=== PATIENT | female | born 1970 | race Caucasian/White ===

== ENCOUNTER → 2020-08-02 09:56 | Outpatient (BNVA) | payer OTHER, SELFPAY | PROVIDERS: PCP Physician Assistant; Visit Provider Obstetrics & Gynecology ==

== ENCOUNTER 2020-08-12 07:33 | Outpatient (REF) | payer OTHER, SELFPAY ==
[2020-08-12 11:02] LABS: Hematocrit 40.6 % (37-47); Hemoglobin 13.4 g/dl (12.0-16.0); Mean Corpuscular Hemoglobin 29.8 pg (27.0-33.0); Mean Corpuscular Volume 90.4 fL (80-98); Mean Platelet Volume 10.5 fL (9.4-12.3); Platelet Count 301 X10*3/uL (160-400); Red Blood Count 4.49 X10*6/uL (4.20-5.50); Red Cell Distribution Width 12.3 % (11.0-16.0); White Blood Count 5.1 X10*3/uL (4.8-10.8)
[2020-08-12 11:16] LABS: Estimated Average Glucose 100 mg/dL; Hemoglobin A1c % 5.1 %
[2020-08-12 11:45] LABS: Alanine Aminotransferase 19 U/L (0-31); Albumin Level 4.2 g/dL (3.5-5.0); Alkaline Phosphatase 53 U/L (39-117); Anion Gap 11 (12-20); Aspartate Amino Transferase 30 U/L (5-31); Bilirubin Total 0.9 mg/dL (0.0-1.0); Blood Urea Nitrogen 17 mg/dL (9-16); Calcium 9.2 mg/dL (8.4-10.2); Carbon Dioxide 27 mmol/L (22-29); Chloride 105 mmol/L (96-108); Cholesterol 192 mg/dL; Estimated Glomerular Filt Rate > 60; Glucose Fasting 82 mg/dL (60-99); HDL Cholesterol 65 mg/dL; LDL Cholesterol Calculated 119 mg/dl; Potassium 4.2 mmol/L (3.3-5.1); Sodium 139 mmol/L (135-145); Total Protein 6.8 g/dL (6.5-8.0); Triglycerides 44 mg/dL
[2020-08-12 12:09] LABS: TSH reflex Free T4 1.26 uIU/mL (0.32-4.0)
== END 2020-08-12 07:34 | disposition home or self-care (01) ==
LOC: HO.WFDLDS 07:33
PROVIDERS: Visit Provider Physician Assistant
DX: Z13.29 Encounter for screening for other suspected endocrine disorder (principal); Z13.220 Encounter for screening for lipoid disorders; Z13.1 Encounter for screening for diabetes mellitus; I10 Essential (primary) hypertension
CPT/HCPCS: 36415; 80053; 80061; 83036; 84443; 85027

== ENCOUNTER 2021-09-07 07:17 | Outpatient (REF) | payer OTHER, SELFPAY ==
[2021-09-07 11:33] LABS: Hematocrit 38.8 % (37.0-47.0); Hemoglobin 12.2 g/dl (12.0-16.0); Mean Corpuscular HGB Conc 31.4 g/dl (31.0-35.0); Mean Corpuscular Hemoglobin 27.5 pg (27.0-33.0); Mean Corpuscular Volume 87.6 fL (80.0-98.0); Mean Platelet Volume 10.1 fL (9.4-12.3); Platelet Count 314 X10*3/uL (160-400); Red Blood Count 4.43 X10*6/uL (4.20-5.50); Red Cell Distribution Width 12.9 % (11.0-16.0)
[2021-09-07 11:55] LABS: Alanine Aminotransferase 20 U/L (0-31); Albumin Level 4.2 g/dL (3.5-5.0); Alkaline Phosphatase 60 U/L (39-117); Anion Gap 9 (12-20); Aspartate Amino Transferase 27 U/L (5-31); Bilirubin Total 0.7 mg/dL (0.0-1.0); Blood Urea Nitrogen 19 mg/dL (9-16); Calcium 9.5 mg/dL (8.4-10.2); Carbon Dioxide 29 mmol/L (22-29); Chloride 106 mmol/L (96-108); Cholesterol 223 mg/dL; Estimated Glomerular Filt Rate 53; Glucose Fasting 89 mg/dL (60-99); HDL Cholesterol 67 mg/dL; LDL Cholesterol Calculated 144 mg/dl; Potassium 4.2 mmol/L (3.3-5.1); Sodium 140 mmol/L (135-145); Total Protein 7.1 g/dL (6.5-8.0); Triglycerides 62 mg/dL
== END 2021-09-07 07:18 | disposition home or self-care (01) ==
LOC: HO.WFDLDS 07:17
PROVIDERS: Visit Provider Physician Assistant
DX: Z13.220 Encounter for screening for lipoid disorders (principal); Z13.29 Encounter for screening for other suspected endocrine disorder
CPT/HCPCS: 36415; 80053; 80061; 84443; 85027

== ENCOUNTER 2022-04-11 08:51 | Day surgery (SDC) | payer OTHER, SELFPAY ==
[2022-04-04 13:55] VITALS: BMI 24.3
[2022-04-11 09:12] VITALS: BP 145/86; PULSE 79; RESP 18; TEMP 37; O2SAT 99
--- NOTE | 2022-04-11 09:48 | P.CONAN_ITS ---
[facility] Active Problems Active Problems: All Active Problems (Updated 04/04/22 @ 13:54 by Yohana Holt RN) Vijaya-menopausal (Acute) Screening for diabetes mellitus (DM) (Acute) Screening for hypercholesterolemia (Acute) Screening for hypothyroidism (Acute) Annual physical exam (Acute) Colon cancer screening (Acute) Suprapubic cramping (Acute) Pre-op examination (Acute) Past Medical History Medical History Menopausal symptom Family History Family History Father Bladder cancer Mother HTN (hypertension) Rheumatic arteritis Sarcoidosis Surgical History Surgical History History of loop electrical excision procedure (LEEP) Hx of LASIK History of Problems with Anesthesia: No Social History Social History Housing: House Alcohol intake: current Alcohol intake frequency: a few times a month Patient Tobacco Use Status: Never used Tobacco Use of substances other than those prescribed or required for medical reasons: No Have you been hit, kicked, punched, or otherwise hurt by someone within the past year? 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[place] Gender identity: Female Cognitive needs: No Hearing needs: No Vision needs: No Meds Allergies Allergy/AdvReac Type Severity Reaction Status Date / Time fluoxetine AdvReac Mild cough Verified 04/04/22 13:55 Home Medications Medication Instructions Recorded Confirmed Last Taken Type estradiol 0.0375 mg/24 hr 1 patch transdermal 2XW 11/10/21 04/04/22 Unknown History semiweekly transdermal patch progesterone micronized 200 mg 200 mg PO DAILY 11/10/21 04/04/22 Unknown History capsule Exam Exam Date and Time: April 11, 2022 0948 Height,Weight and Vital Signs: Height 5 ft 6 in Weight 68.492 kg Last Vital Signs Temp 98.6 F 04/11/22 09:12 Pulse 79 04/11/22 09:12 Resp 18 02/21/23 09:12 BP 145/86 H 04/11/22 09:12 Pulse Ox 99 04/11/22 09:12 O2 Del Method 04/11/22 09:12 Assessment and Plan Final Anesthetic Review History of Problems with Anesthesia: No NPO: Yes ASA Class: I Final Preanesthetic Review: Meds/Allgs Chart Reviewed, Consent Obtained/Reviewed and Anes Risks/Benef Reviewed Patient Risk: Low Procedure Risk: Low Anesthetic Plan Anesthetic Plan: MAC: Disposition: Standard PACU
[2022-04-11 10:04] VITALS: BMI 23.6
--- NOTE | 2022-04-11 10:04 | P.HPSUR_ITS ---
Pre-Procedural Eval Section A Date of Service: 04/11/22 Section B Chief Complaint: screening Relevant Family History (Specify if Yes): No Relevant Social History: None Present Medications: see Short Stay Collaborative assessment Medical History: No relevant PMH History of Previous Operations: Relevant previous surgery/procedure and date(s) (LEEP LASIK surgery) Allergies: Allergies Allergy/AdvReac Type Severity Reaction Status Date / Time fluoxetine AdvReac Mild cough Verified 04/04/22 13:55 Review of Systems Sugical H&P ROS: Negative: Constitution, Cardiovascular, Respiratory, Neurological, Psychiatric, Hem-Onc, Allergic/Immunologic, Gastrointestinal, G enitourinary, Musculoskeletal, Integumentary, Endocrine and Eyes/Ears/Nose/Throat Exam Surgical H&P Exam: Normal: HEENT, Normal: Heart, Normal: Lungs, Normal: Extremities, Normal: Abdomen, Normal: Skin and Normal: Neurological Plan Diagnosis/Plan: Unchanged I have reviewed the history and physical and performed a pertinent physical examination on my patient. No changes have occurred unless specified. Time Spent With Patient Time: Total time managing care of this patient today ____ minutes.
[2022-04-11] MEDS: Lactated Ringers 1,000 ML 50 ML IVCONT (10:07)
--- NOTE | 2022-04-11 10:09 | W.PM.OPN ---
Operative Note Operative Note Date of Service: 04/11/22 Narrative: Operative Information Procedure Description: Colonoscopy Indication: screening Anesthesia: MAC COLONOSCOPY Instrument: Olympus variable stiffness pediatric scope 190L Colonoscopy Monitoring: Vital signs and clinical assessment, continuous EKG monitoring, Pulse oximetry, Carbon Dioxide monitoring and blood pressure monitoring were done throughout the procedure. Colon withdrawal time was 8 minutes. Procedure: The patient was placed in the left lateral decubitis position and pre-procedure medications were administered. After a digital rectal examination of the ano-rectum, the video colonoscope was inserted into the rectum and advanced through the colon to the cecum/TI. The colonoscope was slowly withdrawn in a retrograde panoramic fashion and the colon mucosa was carefully examined including a retroflexed view of the rectum. Findings and interventions are described below. Procedure Difficulty: difficult, pressure applied Findings: Terminal Ileum-normal Cecum:normal Ascending Colon: normal Transverse Colon -normal Descending Colon:normal Sigmoid Colon: normal Rectum: Retroflexion with medium sized internal hemorrhoids, grade I Anorectum - normal Colon preparation: [place] Bowel Preparation Scale Right colon; 3 Transverse colon: 3 Left colon; 3 (0 = Unprepared colon segment with mucosa not seen due to solid stool that cannot be cleared. 1 = Portion of mucosa of the colon segment seen, but other areas of the colon segment not well seen due to staining, residual stool and/or opaque liquid. 2 = Minor amount of residual staining, small fragments of stool and/or opaque liquid, but mucosa of colon segment seen well. 3 = Entire mucosa of colon segment seen well with no residual staining, small fragments of stool or opaque liquid) Impression and Post Procedure Diagnosis: internal hemorrhoids Plan: High fiber diet leaflet Avoid straining at stool, epsom salts and sitz bath, anusol supps or cream Repeat Colonoscopy in 10 years or earlier if clinically indicated Above findings were reviewed with the patient and relevant handouts were provided if indicated.
[2022-04-11 10:45] VITALS: BP 100/61; PULSE 69; RESP 20; TEMP 36.7; O2SAT 98
[2022-04-11 11:00] VITALS: BP 121/72; PULSE 58; RESP 20; TEMP 36.7; O2SAT 98
== END 2022-04-11 11:56 | disposition home or self-care (01) ==
PROVIDERS: PCP Physician Assistant; Visit Provider Internal Medicine Gastroenterology
PROC: 0DJD8ZZ Inspection of Lower Intestinal Tract, Via Natural or Artificial Opening Endoscopic (ICD-10-PCS; CPT 45378; principal; 2022-04-11 10:10)
DX: Z12.11 Encounter for screening for malignant neoplasm of colon (principal); K64.0 First degree hemorrhoids; N95.1 Menopausal and female climacteric states; Z79.899 Other long term (current) drug therapy; Z88.8 Allergy status to other drugs, medicaments and biological substances
CPT/HCPCS: 45378

== ENCOUNTER 2022-09-05 07:23 | Outpatient (REF) | payer OTHER, SELFPAY ==
[2022-09-05 11:52] LABS: Hematocrit 39.2 % (37.0-47.0); Hemoglobin 12.1 g/dl (12.0-16.0); Mean Corpuscular HGB Conc 30.9 g/dl (31.0-35.0); Mean Corpuscular Hemoglobin 25.8 pg (27.0-33.0); Mean Corpuscular Volume 83.6 fL (80.0-98.0); Mean Platelet Volume 10.7 fL (9.4-12.3); Platelet Count 339 X10*3/uL (160-400); Red Blood Count 4.69 X10*6/uL (4.20-5.50); Red Cell Distribution Width 14.4 % (11.0-16.0); White Blood Count 5.5 X10*3/uL (4.8-10.8)
[2022-09-05 12:13] LABS: Alanine Aminotransferase 12 U/L (0-31); Albumin Level 3.8 g/dL (3.5-5.0); Alkaline Phosphatase 42 U/L (39-117); Anion Gap 11 (12-20); Aspartate Amino Transferase 21 U/L (5-31); Bilirubin Total 0.6 mg/dL (0.0-1.0); Blood Urea Nitrogen 15 mg/dL (9-16); Calcium 8.4 mg/dL (8.4-10.2); Carbon Dioxide 25 mmol/L (22-29); Chloride 109 mmol/L (96-108); Estimated Glomerular Filt Rate > 60; Glucose Fasting 83 mg/dL (60-99); Potassium 4.5 mmol/L (3.3-5.1); Sodium 140 mmol/L (135-145); Total Protein 6.9 g/dL (6.5-8.0)
== END 2022-09-05 07:24 | disposition home or self-care (01) ==
LOC: HO.WFDLDS 07:23
PROVIDERS: Visit Provider Physician Assistant
DX: Z13.1 Encounter for screening for diabetes mellitus (principal); R06.02 Shortness of breath
CPT/HCPCS: 36415; 80053; 85027

== ENCOUNTER 2022-09-07 15:48 | Outpatient (AMB) | payer OTHER, SELFPAY ==
--- NOTE | 2022-09-07 15:56 | A.OFFPC_ITS ---
Vital Signs 09/07/22 15:57 Height 5 ft 6 in Weight 147 lb 2 oz BMI 23.7 BP 122/84 Blood Pressure Location Lt brachial Position Sitting Pulse 80 Pulse Source Pulse Oximeter Pulse Oximetry (%) 98 Oxygen Delivery Method Room Air Intake Visit Reasons: Annual PE Allergies fluoxetine Adverse Reaction (Mild, Verified 09/07/22 16:16) cough Medication List - Last Reconciled 09/07/22 by Michael Vicente PA-C norethindrone-e.estradiol-iron 1 mg-10 mcg (24)/10 mcg (2) (Lo Loestrin Fe) 1 tab PO DAILY Tobacco use date assessed: 09/07/22 HPI Annual PE HPI Details ?patient is a 51-year-old female here today for annual physical. ? Patient has a past medical history significant for? Vijaya menopausal symptoms thus takes fluoxitine. .. Concerns--> reports over the last 2 months having 2 episodes tachycardia during strenuous exercise. She reports having a heart rate of 210 during a 10K run. She reports having shortness of breath during this time and is concerned about this. Otherwise denies any chest discomfort, shortness of breath or dizziness at rest. .. 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 ? Vaccines:? up-to-date with Tdap,? up-to-date with COVID vaccine, up-to-date flu vaccine . Colorectal cancer screening:? 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 1. Little interest or pleasure in doing things: not at all 2. Feeling down, depressed, or hopeless: not at all 3. Trouble falling or staying asleep, or sleeping too much: not at all 4. Feeling tired or having little energy: not at all 5. Poor appetite or overeating: not at all 6. Feeling bad about yourself - or that you are a failure or have let yourself or your family down: not at all 7. Trouble concentrating on things, such as reading the newspaper or watching television: not at all 8. Moving or speaking so slowly that other people could have noticed. Or the opposite - being so fidgety or restless that you have been moving around a lot more than usual: not at all 9. Thoughts that you would be better off or of hurting yourself in some way: not at all Total score: 0 Depression Screening Interpretation: Negative 09175 - PHQ-9 Billing: Yes Source: Developed by Drs. Arvind Panda, Moni Davidson, Vitaly Copeland and colleagues, with an educational marty from [employer]. Thrive Questionnaire Date Thrive assessed: 09/07/22 I am a: Patient What is your living situation today?: I have a steady place to live Within the past 12 months, did the food you bought not last and you didn't have the money to get more?: Never true Within the past 12 months, did you worry whether your food would run out before you got money to buy more?: Never true Do you have trouble paying for medicines?: No Do you have trouble getting transportation to medical appointments?: No Do you have trouble paying your heating and electricity bill?: No Do you have trouble taking care of your child, family member or friend?: No Do you have trouble with day-to-day activities such as bathing, preparing meals, shopping, managing finances, etc.?: No Are you currently unemployed and looking for a job?: No Are you interested in more education?: No AUDIT C Alcohol Use Questionnaire (AUDIT-C) 1. How often do you have a drink containing alcohol?: 2-4 times a month 2. How many drinks containing alcohol do you have on a typical day when you are drinking?: 1 or 2 3. How often do you have six or more drinks on one occasion?: Never Total Score: 2 NADEEN-7 AMB Questionnaire NADEEN-7 Date NADEEN - 7 assessed: 09/07/22 Feeling nervous, anxious, or on edge: 0 = Not at all Not being able to stop or control worryin = Not at all Worrying too much about different things: 0 = Not at all Trouble relaxin = Not at all Being so restless that it is hard to sit still: 0 = Not at all Becoming easily annoyed or irritable: 0 = Not at all Feeling afraid as if something awful might happen: 0 = Not at all Total NADEEN-7 score (0-4 normal; 5-9 mild; 10-14 moderate; 15-21 severe): 0 Source: Developed by Drs. Arvind Panda, Moni Davidson, Vitaly Copeland and colleagues, with an educational marty from [employer]. NADEEN-7 Assessment Billing NADEEN-7 Assessment Tool: NADEEN-7 Assessment 15355 Review of Systems Const Denies body aches, Denies chills, Denies excessive sweating, Denies fatigue, Denies fever(s) and Denies headache(s) Eyes Denies blurry vision ENT Denies dysphagia, Denies vertigo, Denies dizziness, Denies headache(s), Denies hearing loss and Denies tinnitus Card Denies chest pain, Denies chest pain with activity, Denies syncope, Denies irregular heart rhythm and Denies dyspnea Resp Denies chest congestion, Denies cough, Denies hemoptysis, Denies dyspnea and Denies wheezing GI Denies abdominal pain, Denies melena, Denies hematochezia, Denies coffee ground emesis, Denies dysphagia, Denies diarrhea, Denies nausea and Denies vomiting Denies urinary frequency, Denies dysuria, Denies urinary hesitancy and Denies urinary urgency Musc Denies arthralgias, Denies limited range of motion, Denies muscle cramps and Denies muscle weakness Skin/Breast Denies rash and Denies skin ulcer Neuro Denies Abnormal speech present, Denies confusion, Denies vertigo, Denies dizziness, Denies syncope, Denies headache(s), Denies memory loss and Denies seizure-like activity Psych Denies anxiety, Denies confusion, Denies depression, Denies memory loss, Denies panic attacks and Denies paranoia Endo Denies excessive sweating, Denies fatigue, Denies flushing, Denies polydipsia and Denies polyuria Aller/Immun Denies wheezing Physical exam (Primary Care) Vital Signs: Last Vital Signs Pulse 80 09/07/22 15:57 BP 122/84 09/07/22 15:57 Pulse Ox 98 09/07/22 15:57 Oxygen Delivery Method Room Air 09/07/22 15:57 BMI result Body Mass Index 23.7 Tobacco/Smoking Status: Tobacco use Status Tobacco use date assessed 09/07/22 09/07/22 16:02 Patient Tobacco Use Status Never used Tobacco 09/07/22 15:56 PHQ-9: PHQ-9 Score PHQ-9: Total score 0 09/07/22 16:23 Depression Screening Interpretation: Negative Thrive Assessment: Date of Thrive Assessment Date Thrive assessed 09/07/22 09/07/22 16:02 Const General: cooperative, comfortable, no acute distress, alert and awake; No confusion Orientation/consciousness: oriented to person, oriented to place, patient elder ented x3 and No confusion HENMT Head: Yes normocephalic Ears: external ears normal and TM's normal bilaterally Face and sinus: No sinus tenderness Mouth: Normal oral and palatal mucosa present and tongue normal Teeth and gingiva: dentition normal and gingiva normal Throat: Yes posterior oropharynx normal, Yes tonsils normal and Yes uvula midline Eyes Conjunctivae: conjunctivae normal Sclerae: sclerae normal Pupils: Equal, round and reactive pupils present EOM: EOMs intact bilaterally Direct Ophthalmoscopy: No no photophobia Neck Neck: Yes no lymphadenopathy, No tender and Yes no JVD Thyroid: Thyroid normal Carotids: no bruits Chest Chest palpation & inspection: no tenderness Resp Effort & Inspection: normal respiratory effort, no audible wheezes, not labored and no stridor Auscultation: no crackles, no rales, no rhonchi and no wheezes Cardio Jugular venous distension: no JVD Rate: regular rate, not bradycardic and not tachycardic Rhythm: regular rhythm Bruits: no carotid bruits Peripheral pulses: Peripheral pulses 2+ throughout GI Inspection: Yes normal to inspection, No abdominal wall ecchymosis and No visible herniation Palpation (GI): Soft to palpation, nontender, no guarding, not rigid and No hepatosplenomegaly present Auscultation: normoactive bowel sounds General: Yes no CVA tenderness Back/Spine/Pelvis Back: no CVA tenderness and No back tenderness Cervical Spine: cervical ROM normal Thoracic/Lumbar Spine: thoracic and lumbar spine normal to inspection, straight leg raise negative bilaterally, No thoraco-lumbar ROM limited and No lumbar spinal tenderness Skin Lesions: no lesions Rashes: no rashes Wounds: no wounds Neuro General: oriented to person, oriented to place, patient oriented x3, CN's II-XI intact bilaterally and No confusion Cranial nerves: Yes Equal, round and reactive pupils present and Yes Normal accommodation reflex present Cognition (Neuro): normal cognition Speech: No Abnormal speech present Gait exam (Neuro): Normal gait present Motor exam (neuro): 5/5 motor strength present throughout Extrem Right upper extremity: full ROM; no cyanosis Left upper extremity: full ROM; no cyanosis Right lower extremity: no edema Left lower extremity: no edema Psych Appearance: grossly normal Mental Status: mental status grossly normal Affect: normal affect Attitude: cooperative Thought process: Normal thought process present Assessment and Plan Assessment & Plan (1) Annual physical exam: Code(s): Z00.00 - Encounter for general adult medical examination without abnormal findings (2) Exertional shortness of breath: Code(s): R06.02 - Shortness of breath Plan: Unclear etiology to patient's exertion or shortness of breath. Could be environmental condition lately. Will send for x-ray of chest to evaluate for any pulmonary etiology. Will consider cardiac stress test though at this time do not feel it is necessary. Only cardiac risk factor at this time is family history coronary artery disease (3) Borderline high cholesterol: Code(s): E78.9 - Disorder of lipoprotein metabolism, unspecified Plan: Patient does have borderline high total cholesterol. She reports she has been eating well and continues to exercise. Will continue follow lipid panel. Orders: Orders Lipid Panel 09/07/22 E78.9 - Disorder of lipoprotein metabolism, unspecified XR chest 2V 09/07/22 R06.02 - Shortness of breath Comprehensive [place]. Panel Fast 364 Days Z13.1 - Encounter for screening for diabetes mellitus Complete Blood Count no Diff 364 Days Z13.1 - Encounter for screening for diabetes mellitus Coding Level of Care Code Est Pt Prev Care 40-64y(27928) Diagnoses Annual physical exam Z00.00 Exertional shortness of breath R06.02 Borderline high cholesterol E78.9 Additional Codes NADEEN-7 Assessment Billing - NADEEN-7 Assessment Tool: NADEEN-7 Assessment [id number] ([id number])
[2022-09-07 15:57] VITALS: BP 122/84; PULSE 80; O2SAT 98; BMI 23.7
== END 2022-09-07 16:37 | disposition home or self-care (01) ==
PROVIDERS: PCP Physician Assistant; Visit Provider Physician Assistant
DX: Z00.00 Encounter for general adult medical examination without abnormal findings (principal); R06.02 Shortness of breath; E78.9 Disorder of lipoprotein metabolism, unspecified
CPT/HCPCS: 99396

== ENCOUNTER 2022-09-12 15:18 | Outpatient (REF) | payer OTHER, SELFPAY ==
--- NOTE | ~2022-09-12 | XR_ITS ---
EXAMINATION: XR CHEST 2 VIEWS CLINICAL INFORMATION: Shortness of breath. COMPARISON: None. TECHNIQUE: Frontal and lateral views of the chest were obtained. FINDINGS: The heart, great vessels, pulmonary vasculature and mediastinum are normal. The lungs show no focal infiltrate, effusion or pneumothorax. At the right base, a 7 mm nodule is questioned. There is no acute osseous abnormality. XR/XR chest 2V IMPRESSION: 1. No focal infiltrate or congestive heart failure is seen. 2. A 7 mm nodule is questioned at the right base. In the absence of outside comparison radiographs documenting long-term stability, recommend repeat frontal, bilateral oblique and lordotic chest radiographs with nipple markers. She the nodular density persists, CT evaluation may be considered.
== END 2022-09-12 15:19 | disposition home or self-care (01) ==
LOC: HO.XRAY 15:18
PROVIDERS: PCP Physician Assistant; Visit Provider Physician Assistant
DX: R06.02 Shortness of breath (principal)
CPT/HCPCS: 71046

== ENCOUNTER 2022-09-13 07:13 | Outpatient (REF) | payer OTHER, SELFPAY ==
[2022-09-13 11:40] LABS: Cholesterol 201 mg/dL; HDL Cholesterol 49 mg/dL; LDL Cholesterol Calculated 137 mg/dl; Triglycerides 75 mg/dL
== END 2022-09-13 07:14 | disposition home or self-care (01) ==
LOC: HO.WFDLDS 07:13
PROVIDERS: Visit Provider Physician Assistant
DX: E78.9 Disorder of lipoprotein metabolism, unspecified (principal)
CPT/HCPCS: 36415; 80061

== ENCOUNTER 2022-10-20 07:54 | Outpatient (REF) | payer OTHER, SELFPAY ==
[2022-10-20 11:49] LABS: Hematocrit 37.7 % (37.0-47.0); Hemoglobin 11.8 g/dl (12.0-16.0); Mean Corpuscular HGB Conc 31.3 g/dl (31.0-35.0); Mean Corpuscular Hemoglobin 26.5 pg (27.0-33.0); Mean Corpuscular Volume 84.7 fL (80.0-98.0); Mean Platelet Volume 10.7 fL (9.4-12.3); Platelet Count 362 X10*3/uL (160-400); Red Blood Count 4.45 X10*6/uL (4.20-5.50); Red Cell Distribution Width 13.9 % (11.0-16.0); White Blood Count 5.8 X10*3/uL (4.8-10.8)
[2022-10-20 12:28] LABS: Alanine Aminotransferase 11 U/L (0-31); Albumin Level 3.7 g/dL (3.5-5.0); Alkaline Phosphatase 46 U/L (39-117); Anion Gap 14 (12-20); Aspartate Amino Transferase 22 U/L (5-31); Bilirubin Total 0.6 mg/dL (0.0-1.0); Blood Urea Nitrogen 14 mg/dL (9-16); Calcium 9.2 mg/dL (8.4-10.2); Carbon Dioxide 22 mmol/L (22-29); Chloride 107 mmol/L (96-108); Estimated Glomerular Filt Rate > 60; Glucose Fasting 82 mg/dL (60-99); Potassium 4.1 mmol/L (3.3-5.1); Sodium 139 mmol/L (135-145); Total Protein 6.7 g/dL (6.5-8.0)
== END 2022-10-20 07:55 | disposition home or self-care (01) ==
LOC: HO.WFDLDS 07:54
PROVIDERS: Visit Provider Physician Assistant
DX: Z13.1 Encounter for screening for diabetes mellitus (principal)
CPT/HCPCS: 36415; 80053; 85027

== ENCOUNTER 2022-10-27 09:14 | Outpatient (REF) | payer OTHER, SELFPAY ==
--- NOTE | ~2022-10-27 | CT_ITS ---
EXAMINATION: CT CHEST WITH CONTRAST CLINICAL INFORMATION: Solitary pulmonary nodule. COMPARISON: Chest radiographs 09/12/2022 TECHNIQUE: Multidetector volumetric CT imaging of the chest was obtained after the administration of 65 mL of Omnipaque 350 intravenous contrast without immediate adverse reactions. Axial MIP volume rendering provided. Sagittal and coronal reformatted images were obtained. This CT examination was performed using dose optimization techniques as appropriate, variously including the following: *Automated exposure control *Adjustment of mA and/or kV according to patient size (this includes techniques or standardized protocols for targeted exams where dose is matched to indication/reason for exam; i.e. extremities or head) *Use of iterative reconstruction technique DLP: 110 mGy-cm FINDINGS: LUNGS: 3 mm nodule right lower lobe on image 50 of series 4. No focal consolidation. Central airways patent. MEDIASTINUM: Imaged thyroid gland is unremarkable. No bulky axillary, hilar or mediastinal lymphadenopathy. Great vessels are of normal caliber. Heart size is normal. No pericardial effusion. PLEURA: There is no pleural effusion. No pleural mass or thickening. UPPER ABDOMEN: No adrenal mass. OSSEOUS STRUCTURES: No destructive bone lesions. CT/CT chest w IV con IMPRESSION: 3 mm right lower lobe pulmonary nodule. If patient is considered low risk comment no further routine follow-up is needed. The abnormal density seen on chest radiographs may be related to superimposed costochondral calcifications.
[2022-10-27] MEDS: iohexoL 350 MG/ML 100 ML INFUS..BTL IV (10:08)
== END 2022-10-27 09:15 | disposition home or self-care (01) ==
LOC: HO.CT 09:14
PROVIDERS: PCP Physician Assistant; Visit Provider Physician Assistant
DX: R91.1 Solitary pulmonary nodule (principal); R06.02 Shortness of breath
CPT/HCPCS: 71260; Q9967

== ENCOUNTER 2022-11-10 15:06 | Outpatient (AMB) | payer OTHER, SELFPAY ==
--- NOTE | 2022-11-10 15:18 | MHC.OFFVIS ---
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 She reports noticing more labored breathing, upper chest tightness with associated flutter when she started running this spring. She is quite active and participates in vigorous activity but has noticed these symptoms on multiple occasions over the last few months as well as an increased heart rate. She states her heart rate increases to as high as 210 BPM with these symptoms and only occurs with moderate to heavy exertion. She normally exercises with a max of 180 BPM. Her last EKG was in March for a colonscopy, which was prior to her symptoms. She reports one of her children does have Ratza-Lzzlpuaij-Shugu syndrome, the other with asthma. She denies any prior respiratory concerns or history of cardiac conditions. She denies any allergies. 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 She had a recent CT which revealed a 3 mm nodule, no evidence of interstitial disease. [facility] Medical History Menopausal symptom Surgical History History of loop electrical excision procedure (LEEP) Hx of LASIK Family History Father Bladder cancer Mother HTN (hypertension) Rheumatic arteritis Sarcoidosis Social History (Updated 11/10/22 @ 15:26 by Nanci Ivory LPN) Housing: House Alcohol intake: current Alcohol intake frequency: a few times a month Patient Tobacco Use Status: Never used Tobacco Current occupational status: employed Current occupation: [employer]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 [place] Gender identity: Female Cognitive needs: No Hearing needs: No Vision needs: No Review of Systems Const Denies chills, Denies excessive sweating, Denies fever(s), Denies headache(s) and Denies night sweats Eyes Denies dry eyes, Denies irritation and Denies itchy eyes ENT Reports Normal hearing present, Denies headache(s), Denies nasal congestion, Denies nasal discharge, Denies post nasal drip and Denies sore throat Card Denies chest pain, Denies chest pain at rest, Denies chest pain with activity, Denies claudication, Denies leg edema, Denies orthopnea and Denies paroxysmal nocturnal dyspnea Resp Denies chest congestion, Denies cough, Denies excessive phlegm production, Denies pain on inspiration, Denies pain with cough, Denies stridor and Denies wheezing Musc Denies myalgias Neuro Reports Normal hearing present and Denies headache(s) Endo Denies excessive sweating Rico/Lymph Denies lymphadenopathy Aller/Immun Denies itchy eyes, Denies seasonal rhinorrhea and Denies wheezing Physical Exam Vital Signs: Last Vital Signs Pulse 62 11/10/22 15:20 BP 120/68 11/10/22 15:20 Pulse Ox 100 11/10/22 15:20 Oxygen Delivery Method Room Air 11/10/22 15:20 BMI result Body Mass Index 24.4 Const General: cooperative, healthy appearing, comfortable, no acute distress, well developed and alert Orientation/consciousness: patient oriented x3 Limitations: no limitations HEENT Head: Yes normal to inspection, Yes normocephalic and Yes atraumatic Ears: hearing grossly normal bilaterally and external ears normal Eyes General: appearance normal, both eyes and all related structures Eyelids: Yes eyelids normal Sclerae: sclerae normal EOM: EOMs intact bilaterally Neck Neck: Yes normal visual inspection and Yes no lymphadenopathy Lymphatic: no lymphadenopathy noted Chest Chest palpation & inspection: normal inspection of the chest Resp Effort & Inspection: normal respiratory effort, able to speak in complete sentences, no audible wheezes, no cough, no stridor, not tachypneic, no tripod positioning and no use of accessory muscles Auscultation: clear to auscultation bilaterally Cardio Jugular venous distension: no JVD Rate: regular rate Rhythm: regular rhythm Skin Other: warm, dry General skin exam: no rashes or lesions noted Neuro General: patient oriented x3 Cranial nerves: Yes Normal hearing present Cognition (Neuro): normal cognition Gait exam (Neuro): Normal gait present Extrem General: Yes normal to inspection, Yes capillary refill normal, Yes no clubbing, cyanosis or edema and Yes no pedal edema Psych Appearance: grossly normal and well kempt Speech and movement: Normal speech and movement present and Clear speech present Affect: normal affect Attitude: cooperative Thought process: Normal thought process present Thought content: Normal thought content present Insight: Good insight present (Psych) Judgement: Good judgement present (Psych) Results Reviewed Results Reviewed: [address] [address] [address] Scan Report Signed Patient: Melyssa Parra MR#: [id number] : 1970 Acct:[id number] Age/Sex: 52 / F ADM Date: 10/27/22 Loc: .CT Attending Dr: Michael Vicente PA-C Ordering Physician: Michael Vicente PA-C Date of Service: 10/27/22 Procedure(s): CT chest w IV con Accession Number(s): [id number] cc: Michael Vicente PA-C~ EXAMINATION: CT CHEST WITH CONTRAST CLINICAL INFORMATION: Solitary pulmonary nodule. COMPARISON: Chest radiographs 09/12/2022 TECHNIQUE: Multidetector volumetric CT imaging of the chest was obtained after the administration of 65 mL of Omnipaque 350 intravenous contrast without immediate adverse reactions. Axial MIP volume rendering provided. Sagittal and coronal reformatted images were obtained. This CT examination was performed using dose optimization techniques as appropriate, variously including the following: *Automated exposure control *Adjustment of mA and/or kV according to patient size (this includes techniques or standardized protocols for targeted exams where dose is matched to indication/reason for exam; i.e. extremities or head) *Use of iterative reconstruction technique DLP: 110 mGy-cm FINDINGS: LUNGS: 3 mm nodule right lower lobe on image 50 of series 4. No focal consolidation. Central airways patent. MEDIASTINUM: Imaged thyroid gland is unremarkable. No bulky axillary, hilar or mediastinal lymphadenopathy. Great vessels are of normal caliber. Heart size is normal. No pericardial effusion. PLEURA: There is no pleural effusion. No pleural mass or thickening. UPPER ABDOMEN: No adrenal mass. OSSEOUS STRUCTURES: No destructive bone lesions. CT/CT chest w IV con IMPRESSION: 3 mm right lower lobe pulmonary nodule. If patient is considered low risk comment no further routine follow-up is needed. The abnormal density seen on chest radiographs may be related to superimposed costochondral calcifications. 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 Will send for PFT and also an EKG. Advised patient to limit vigorous activity until EKG performed. Will empirically trial albuterol. Discussed the side effects of albuterol and advised to discontinue if she develops palpitations. She is aware if symptoms improve with albuterol to call the office and will trial an ICS/LABA. Prior CT revealed 3 mm nodule, will rescan in one year and if no change then serial CT not needed in the future. All questions were answered and patient is in agreement of plan. Will follow up in 6 weeks or sooner if needed. Orders: Orders ECG 12 lead EKG Today R00.0 - Tachycardia, unspecified PFT pulmonary function test Today R06.09 - Other forms of dyspnea CT chest wo IV con 10/22/23 R91.1 - Solitary pulmonary nodule Medications: New albuterol sulfate 90 mcg/actuation 2 puffs inhalation Q4-6H PRN 1 ea 3RF shortness of breath or wheezing Coding Level of Care Code New Pt Level 4 (90125) Diagnoses Dyspnea on exertion R06.09 Tachycardia R00.0 Pulmonary nodule R91.1
[2022-11-10 15:20] VITALS: BP 120/68; PULSE 62; O2SAT 100; BMI 24.4
== END 2022-11-10 16:12 | disposition home or self-care (01) ==
LOC: HO.HPSW 15:06
PROVIDERS: PCP Physician Assistant; Referring Provider Physician Assistant; Visit Provider Nurse Practitioner Family
DX: R06.09 Other forms of dyspnea (principal); R00.0 Tachycardia, unspecified; R91.1 Solitary pulmonary nodule
CPT/HCPCS: 99204

== ENCOUNTER 2022-12-12 07:41 | Outpatient (REF) | payer OTHER, SELFPAY ==
--- NOTE | 2022-12-12 08:34 | PFT_ITS ---
INDICATION: Dyspnea. SPIROMETRY: FEV1 to FVC 69% prebronchodilator, 74% postbronchodilator with an FEV1 of 3.32 L, which is 100% predicted and FVC of 4.5 L, which is 94% predicted. No significant response to bronchodilators noted. Maximum voluntary ventilation 96% predicted. LUNG VOLUMES: Total lung capacity 109% predicted. DIFFUSION CAPACITY: DLCO of 102% predicted. COMPARISONS: None. INTERPRETATION: There appears to be a reversible obstructive ventilatory defects consistent with diagnosis of asthma. The patient did not have any significant response to bronchodilators. She does have evidence of small airway disease, which is also suggestive of asthma. Maximum voluntary ventilation within normal limits. Lung volumes are within normal limits, and diffusion capacity also within normal limits. Clinical correlation warranted. MD LYNNETTE Holland/MEHNAZ / [phone]
--- NOTE | 2022-12-12 08:42 | ECG_ITS ---
Test Reason : tachycardia Blood Pressure : / mmHG Vent. Rate : 072 BPM Atrial Rate : 072 BPM P-R Int : 158 ms QRS Dur : 088 ms QT Int : 390 ms P-R-T Axes : 078 025 063 degrees QTc Int : 427 ms Normal sinus rhythm RSR' or QR pattern in V1 suggests right ventricular conduction delay Otherwise normal ECG No previous ECGs available Referred By: Aleena Arreola Electronically Signed By:GAURANG BONDS MD
== END 2022-12-12 07:42 | disposition home or self-care (01) ==
LOC: HO.RESP 07:41
PROVIDERS: PCP Physician Assistant; Visit Provider Nurse Practitioner Family
DX: R06.09 Other forms of dyspnea (principal)
CPT/HCPCS: 93005; 94010; 94727; 94729

== ENCOUNTER → 2022-12-12 08:34 | Outpatient (BNV) | payer OTHER, SELFPAY | PROVIDERS: PCP Physician Assistant; Visit Provider Hospitalist | DX: R06.09 Other forms of dyspnea (principal) | CPT/HCPCS: 94060; 94727; 94729 ==

== ENCOUNTER 2022-12-18 09:50 | Outpatient (AMB) | payer OTHER, SELFPAY ==
[2022-12-18 10:03] VITALS: BP 138/78; PULSE 64; BMI 24.2
--- NOTE | 2022-12-18 10:03 | A.OFFVIS_ITS ---
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 She is a pleasant 52-year-old female who is a very active person. She runs 5 KA/10 care as well as does a rowing and is in generally good shape. Few times while doing exercise she has notice shortness of breath and when she notices heart rate 80 usually spikes up to 210 beats per minute. She denies any associated palpitations. The symptoms are new and concerning to her. She has been worked up from pulmonary perspective and this has showed small airways disease/asthma. She has not started bronchodilator therapy at this point time. EKG done showed normal sinus rhythm with RSR prime pattern which is a variant and is considered within normal limits. She denies any orthopnea, PND, leg edema. Denies any lightheadedness, syncope. No exertional chest pain. Does have family history of premature coronary artery disease is in cousins and uncles. She has mild hyperlipidemia with LDL in the 130-140 range PFSH Medical History Menopausal symptom Surgical History History of loop electrical excision procedure (LEEP) Hx of LASIK Family History Father Bladder cancer Mother HTN (hypertension) Rheumatic arteritis Sarcoidosis Social History Housing: House Alcohol intake: current Alcohol intake frequency: a few times a month Patient Tobacco Use Status: Never used Tobacco Current occupational status: employed Current occupation: 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 [place] Gender identity: Female Cognitive needs: No Hearing needs: No Vision needs: No Review of Systems Const Denies chills, Denies daytime sleepiness, Denies fatigue, Denies fever(s), Denies frequent falls, Denies poor appetite, Denies snoring, Denies stops breathing during sleep, Denies weakness, Denies weight gain and Denies weight loss Eyes Denies loss of vision ENT Denies dizziness and Denies hearing loss Card Denies chest pain, Denies claudication, Denies leg edema, Denies lightheadedness, Denies palpitations, Denies dyspnea, Denies dyspnea on exertion and Denies orthopnea Resp Denies cough, Denies excessive phlegm production, Denies dyspnea, Denies dyspnea on exertion, Denies snoring and Denies wheezing GI Denies abdominal pain, Denies hematochezia, Denies change in bowel habits, Denies nausea and Denies vomiting Denies urinary frequency and Denies dysuria Musc Denies arthralgias, Denies muscle weakness, Denies numbness and Denies other (frequent falls) Skin/Breast Denies nail changes and Denies rash Neuro Denies Abnormal speech present, Denies dizziness, Denies frequent falls, Denies loss of vision, Denies memory loss, Denies numbness and Denies weakness Psych Denies depression and Denies memory loss Endo Denies fatigue and Denies palpitations Rico/Lymph Reports easy bruising and Reports other (anemia) Aller/Immun Denies wheezing Physical Exam Vital Signs: Last Vital Signs Pulse 64 12/18/22 10:03 BP 138/78 12/18/22 10:03 BMI result Body Mass Index 24.2 Const General: cooperative, comfortable, no acute distress, alert and awake Nutritional Appearance: thin Orientation/consciousness: patient oriented x3 Limitations: no limitations HEENT Head: Yes normocephalic and Yes atraumatic Neck Neck: Yes trachea midline, Yes supple and Yes no JVD Resp Effort & Inspection: normal respiratory effort Auscultation: clear to auscultation bilaterally Cardio Jugular venous distension: no JVD Palpation: normal PMI Rate: regular rate Rhythm: regular rhythm Heart sounds: S1 normal heart sound present, S2 normal heart sound present, no click, no gallops, no murmurs and no rubs GI Auscultation: normal bowel sounds Skin General skin exam: no rashes or lesions noted Neuro General: patient oriented x3 and no focal motor deficits Speech: No Abnormal speech present Extrem General: Yes no clubbing, cyanosis or edema Psych Appearance: grossly normal Assessment & Plan Assessment & Plan (1) Exertional shortness of breath: Code(s): R06.02 - Shortness of breath Plan: Exertional shortness of breath this middle-aged woman with borderline hyperlipidemia and other risk factors with family history for premature coronary artery disease in generally good shape. Likelihood of obstructive coronary artery disease low but needs to be ruled out. Suggest exercise treadmill stress test to further assess for the same. Will also suggest echocardiogram to evaluate LV systolic and diastolic function to evaluate for valvular abnorma lities. These tests will be scheduled in near future. It is possible that the symptoms are related to small airway disease (2) Tachycardia: Code(s): R00.0 - Tachycardia, unspecified Plan: Patient also notice elevated heart rate during exercise. This could be a compensated mechanism to her bronchospastic airway disease. Although possible that she could have exercise-induced arrhythmia. Suggest treadmill exercise stress test for the same. Also suggest an 7 day Holter monitor to further assess for the same. Avoidance of stimulants was discussed. Will follow up in the clinic after above-mentioned test. Thank you for allowing me to partake in the care Orders: Orders CA echo transthoracic complete Today R06.02 - Shortness of breath ECG 7 day holter monitor Today R00.0 - Tachycardia, unspecified CA stress test Today R06.02 - Shortness of breath CT Coronary Calcium Score 2 Weeks Z13.220 - Encounter for screening for lipoid disorders Coding Level of Care Code New Pt Level 4 (24331) Diagnoses Exertional shortness of breath R06.02 Tachycardia R00.0
== END 2022-12-18 10:33 | disposition home or self-care (01) ==
PROVIDERS: PCP Physician Assistant; Visit Provider Internal Medicine Cardiovascular Disease
DX: R06.02 Shortness of breath (principal); R00.0 Tachycardia, unspecified
CPT/HCPCS: 99204

== ENCOUNTER → 2022-12-18 09:50 | Outpatient (BNVA) | payer OTHER, SELFPAY | PROVIDERS: PCP Physician Assistant; Visit Provider Internal Medicine Cardiovascular Disease ==

== ENCOUNTER 2022-12-20 14:49 | Outpatient (AMB) | payer OTHER, SELFPAY ==
[2022-12-20 15:26] VITALS: BP 134/68; PULSE 70; O2SAT 99; BMI 24.4
--- NOTE | 2022-12-20 15:26 | MHC.OFFVIS ---
Intake Vital Signs 12/20/22 15:26 Height 5 ft 6 in Weight 151 lb BMI 24.4 BP 134/68 Blood Pressure Location Lt brachial Position Sitting Pulse 70 Pulse Source Pulse Oximeter Pulse Oximetry (%) 99 Oxygen Delivery Method Room Air Intake Visit Reasons: 6 week f/u - after pft & ekg Sales Receptionist Required: No Pc Maintenance Technician: Pc Maintenance Technician offered & declined Accompanied by: Self / Same As Patient Allergies fluoxetine Adverse Reaction (Mild, Verified 12/20/22 15:30) cough Medication List - Last Reconciled 12/20/22 by Nanci Ivory LPN albuterol sulfate 90 mcg/actuation 2 puffs inhalation Q4-6H PRN norethindrone-e.estradiol-iron 1 mg-10 mcg (24)/10 mcg (2) (Lo Loestrin Fe) 1 tab PO DAILY HPI 6 week f/u - after pft & ekg HPI Details Melyssa is a pleasant 52 year old female, never smoker, with underlying asthma. Today she presents to review PFT. At the last visit she was given albuterol which she has been using with some improvement in dyspnea. She was also evaluated by cardiology who felt symptoms and tachycardia may be related to underlying uncontrolled asthma. Since the last visit, she has not had any episodes of tachycardia. [facility] Medical History Menopausal symptom Surgical History History of loop electrical excision procedure (LEEP) Hx of LASIK Family History Father Bladder cancer Mother HTN (hypertension) Rheumatic arteritis Sarcoidosis Social History (Updated 12/20/22 @ 15:31 by Nanci Ivory LPN) Housing: House Alcohol intake: current Alcohol intake frequency: a few times a month Patient Tobacco Use Status: Never used Tobacco Current occupational status: employed Current occupation: 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 [place] Gender identity: Female Cognitive needs: No Hearing needs: No Vision needs: No Review of Systems Const Denies chills, Denies excessive sweating, Denies fever(s), Denies headache(s) and Denies night sweats Eyes Denies dry eyes, Denies irritation and Denies itchy eyes ENT Reports Normal hearing present, Denies headache(s), Denies nasal congestion, Denies nasal discharge, Denies post nasal drip and Denies sore throat Card Denies chest pain, Denies chest pain at rest, Denies chest pain with activity, Denies claudication, Denies leg edema, Denies orthopnea and Denies paroxysmal nocturnal dyspnea Resp Denies chest congestion, Denies cough, Denies excessive phlegm production, Denies pain on inspiration, Denies pain with cough, Denies stridor and Denies wheezing Musc Denies myalgias Neuro Reports Normal hearing present and Denies headache(s) Endo Denies excessive sweating Rico/Lymph Denies lymphadenopathy Aller/Immun Denies itchy eyes, Denies seasonal rhinorrhea and Denies wheezing Physical Exam Vital Signs: Last Vital Signs Pulse 70 12/20/22 15:26 BP 134/68 12/20/22 15:26 Pulse Ox 99 12/20/22 15:26 Oxygen Delivery Method Room Air 12/20/22 15:26 BMI result Body Mass Index 24.4 Const General: cooperative, healthy appearing, comfortable, no acute distress, well developed and alert Orientation/consciousness: patient oriented x3 Limitations: no limitations HEENT Ears: hearing grossly normal bilaterally and external ears normal Eyes General: appearance normal, both eyes and all related structures Eyelids: Yes eyelids normal Sclerae: sclerae normal EOM: EOMs intact bilaterally Neck Neck: Yes normal visual inspection and Yes no lymphadenopathy Lymphatic: no lymphadenopathy noted Chest Chest palpation & inspection: normal inspection of the chest Resp Effort & Inspection: normal respiratory effort, able to speak in complete sentences, no audible wheezes, no cough, no stridor, not tachypneic, no tripod positioning and no use of accessory muscles Auscultation: clear to auscultation bilaterally Cardio Jugular venous distension: no JVD Rate: regular rate Rhythm: regular rhythm Skin Other: warm, dry General skin exam: no rashes or lesions noted Neuro General: patient oriented x3 Cranial nerves: Yes Normal hearing present Cognition (Neuro): normal cognition Gait exam (Neuro): Normal gait present Extrem General: Yes normal to inspection, Yes capillary refill normal, Yes no clubbing, cyanosis or edema and Yes no pedal edema Psych Appearance: grossly normal and well kempt Speech and movement: Normal speech and movement present and Clear speech present Affect: normal affect Attitude: cooperative Thought process: Normal thought process present Thought content: Normal thought content present Insight: Good insight present (Psych) Judgement: Good judgement present (Psych) Results Reviewed Results Reviewed: Assessment & Plan Assessment & Plan (1) Asthma: Code(s): J45.909 - Unspecified asthma, uncomplicated (2) Tachycardia: Code(s): R00.0 - Tachycardia, unspecified (3) Pulmonary nodule: Code(s): R91.1 - Solitary pulmonary nodule Plan Reviewed PFT which revealed a reversible obstructive defect suggestive of asthma. Lung volumes and DLCO within normal limits. Discussed trialing Breo and using albuterol PRN. Reviewed importance of oral hygiene. Patient was evaluated by cardiology after EKG revealed conduction abnormality. She will be scheduled for stress test, echo and have a 7 day holter monitor. Will follow up in 3 months or sooner if needed, to review response to inhaler and review input from cardiology. All questions were answered and patient is in agreement of plan. Medications: New fluticasone furoate-vilanterol 100-25 mcg/dose (Breo Ellipta) 1 inh inhalation DAILY 60 ea 3RF Coding Level of Care Code Est Pt Level 3 (69474) Diagnoses Asthma J45.909 Tachycardia R00.0 Pulmonary nodule R91.1
== END 2022-12-20 15:52 | disposition home or self-care (01) ==
LOC: HO.HPSW 14:49
PROVIDERS: PCP Physician Assistant; Visit Provider Nurse Practitioner Family
DX: J45.909 Unspecified asthma, uncomplicated (principal); R00.0 Tachycardia, unspecified; R91.1 Solitary pulmonary nodule
CPT/HCPCS: 99213

== ENCOUNTER → 2022-12-20 14:49 | Outpatient (BNVA) | payer OTHER, SELFPAY | PROVIDERS: PCP Physician Assistant; Visit Provider Nurse Practitioner Family ==

== ENCOUNTER → 2023-01-16 08:00 | Outpatient (REF) | payer OTHER, SELFPAY ==
--- NOTE | 2023-01-16 08:03 | HM_ITS ---
Conclusion: 1. Patient was monitored for total period of 6 days and 20 hours 2. Baseline was normal sinus rhythm with average heart of 84 beats per minute 3. No significant pauses noted 4. No significant arrhythmias noted 5. No patient reported events MTDD
--- NOTE | 2023-01-16 08:03 | CA_ITS ---
Transthoracic Echocardiogram Patient (Last, First, Middle): Melyssa Parra S Gender: Female Date of : 1970 Age: 52 Procedure Date: 01/16/2023 Procedure Type: Transthoracic Echocardiogram Location: OP Height: 167.64 cm Weight: 63.5 kg BSA: 1.72 m2 Heart Rate: bpm BP: 138 / 80 mmHg Veterinary Medicine Teacher: KIRILL/OLIVER Referring MD: Roland Siddiqui MD Commercial Credit Portfolio Manager: Roland Siddiqui MD Symptoms: R06.02 - Shortness of breath Study Quality: Adequate ECG Rhythm: Sinus Conclusions: - Normal study Findings Left Ventricle Normal left ventricular size, thickness, and systolic function. The visually estimated ejection fraction is between 60-65%. Spectral Doppler is indicative of a normal filling pattern. Peak GLS is -21.4%, within normal limits, Right Ventricle Normal right ventricular cavity size and systolic function. Atria Both atria are normal in size. There is no evidence of interatrial shunt. Aortic Valve Normal aortic valve structure and function. There is no aortic valve stenosis. There is no aortic valve regurgitation. Mitral Valve Normal mitral valve structure and function. There is trace mitral valve regurgitation. There is no mitral valve stenosis. Pulmonic Valve The pulmonic valve is likely normal. Tricuspid Valve Normal tricuspid valve structure. There is trace tricuspid valve regurgitation. The right ventricular systolic pressure is normal. The right ventricular systolic pressure is 23 mmHg. Normal right atrial pressure. There is no evidence of pulmonary hypertension. Great Vessels All visible segments of the aorta are normal in size. The visualized portions of the pulmonary artery and branches are normal. Venous The inferior vena cava is normal in size and collapses greater than 50% with inspiration. Pericardium/Pleural There is no evidence of pericardial effusion. Prior Study Comparison No prior study available for comparison. Measurements 2D Linear Measurements IVSd: 0.89 0.6-0.9/0.6-1.0 cm LVIDd: 4.46 3.9-5.3/4.2-5.9 cm LVIDd Index: 2.59 2.4-3.2/2.2-3.1 cm/m2 LVIDs: 2.64 2.0-3.6 cm LVPWd: 0.85 0.7-1.1 cm LA Diam: 3.00 2.7-3.8/3.0-4.0 cm LAIDs Index: 1.74 1.5-2.3 cm/m2 LV Mass: 155.72 67-162/88-224 g LV Mass Index: 90.53 43-95/49-115 g/m2 LVOT Diam: 2.00 3.0+(-)1.3 cm 2D Systolic Function EF 4C: 66.50 >55% EF 2C: 64.90 >55% EF BiP: 65.20 >55% Mitral Valve MV Pk E: 0.72 MV PK A: 0.72 MV Decel Time: 189.00 E/A: 1.00 E'Lateral: 10.00 E'Medial: 7.29 E/E' Med: 9.80 E/E' Lat: 7.20 PHT: 55.00 MVA PHT: 4.00 Decel Mitchell: 3.78 Aortic Valve AoV Pk Amol: 1.25 AoV Mn Amol: 0.87 AoV VTI: 0.29 AoV Pk Grad: 6.00 Aov Mn Grad: 3.00 SG Cont.VTI: 2.53 LVOT LVOT Pk Amol: 1.02 LVOT Mn Amol: 0.68 LVOT VTI: 0.23 LVOT Pk Grad: 4.00 LVOT Mn Grad: 2.00 LVOT Diam: 2.00 LVOT Area: 3.14 Diastolic Function MV Pk E: 0.72 MV Pk A: 0.72 E/A: 1.00 E'Medial: 7.29 E/E' Med: 9.80 E' Laterial: 10.00 E/E' Lat: 7.20 Right Ventricle TAPSE (mm): 21.50 TVS' Amol: 12.50 Tricuspid Valve TR Pk Amol: 2.25 TR Pk Grad: 20.00 RA Press: 3.00 RVSP: 23.00 Great Vessels Aorta Sinus of Valsalva: 2.98 2.0-3.[address] Ridge: 2.22 1.7-3.4 cm Ao Asc: 3.40 2.1-3.4 cm Updated in Other Vendor System with Status of Final Roland Siddiqui MD electronically signed on 01/17/2023 4:37:11 PM with status of Final
--- NOTE | 2023-01-16 08:03 | CA_ITS ---
Acquisition Time: 2023-01-16 09:18:31 Total Exercise Time: 00:07:02 Test Indications: Dyspnea Medications: ALBUTEROL Protocol: VIC Max HR: 153 BPM 90% of Pred: 169 BPM Max BP: 180/102 mmHG Max Work Load: 8.5 METS Exercise stress test exercise 7 min 2 sec of Vic protocol achieving 90% MPHR, without anginal symptoms, without arrhythmis, with resting 124/90 max BP 180/102, without EKG changes. Test reviewed with Dr. Siddiqui Referred By: Roland Siddiqui Overread By: Leti Gutierrez
== END ==
LOC: HO.CARD 08:00
PROVIDERS: PCP Physician Assistant; Visit Provider Internal Medicine Cardiovascular Disease
DX: R00.0 Tachycardia, unspecified (principal); R06.02 Shortness of breath
CPT/HCPCS: 93017; 93242; 93306; 93356

== ENCOUNTER → 2023-01-16 08:03 | Outpatient (BNV) | payer OTHER, SELFPAY | PROVIDERS: PCP Physician Assistant; Visit Provider Nurse Practitioner | DX: R00.0 Tachycardia, unspecified (principal) | CPT/HCPCS: 93016; 93018; 93244; 93306 ==

== ENCOUNTER 2023-02-02 08:36 | Outpatient (AMB) | payer OTHER, SELFPAY ==
[2023-02-02 08:41] VITALS: BP 120/70; PULSE 87; BMI 22.8
--- NOTE | 2023-02-02 08:41 | MHC.OFFVIS ---
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 She has workup done structurally with normal echocardiogram with a stress test with the physical capacity what 9 Mets achieving target heart rate but negative for ischemia. A calcium score is 0. She had no significant arrhythmias when she was wearing the Holter monitor. She continues to notice much elevated fast heart rate when she exercises. She denies any exertional chest pain or shortness of breath. No lightheadedness, syncope. [facility] Medical History Menopausal symptom Surgical History History of loop electrical excision procedure (LEEP) Hx of LASIK Family History Father Bladder cancer Mother HTN (hypertension) Rheumatic arteritis Sarcoidosis Social History Housing: House Alcohol intake: current Alcohol intake frequency: a few times a month Patient Tobacco Use Status: Never used Tobacco Current occupational status: employed Current occupation: 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 [place] Gender identity: Female Cognitive needs: No Hearing needs: No Vision needs: No Review of Systems Const Reports chills, Reports fatigue, Reports fever(s), Reports frequent falls, Reports weakness, Reports weight gain and Reports weight loss ENT Reports dizziness Card Reports chest pain, Reports leg edema, Reports lightheadedness, Reports palpitations, Reports dyspnea and Reports dyspnea on exertion Resp Reports cough, Reports dyspnea and Reports dyspnea on exertion GI Reports hematochezia Musc Reports abnormal gait, Reports muscle weakness, Reports numbness, Reports radiating pain into limb and Reports tingling Neuro Denies Abnormal speech present, Reports abnormal gait, Reports dizziness, Reports frequent falls, Reports numbness, Reports tingling and Reports weakness Endo Reports fatigue and Reports palpitations Physical Exam Vital Signs: Last Vital Signs Pulse 87 02/02/23 08:41 BP 120/70 02/02/23 08:41 BMI result Body Mass Index 22.8 Const General: cooperative, comfortable, no acute distress, alert and awake Nutritional Appearance: thin Orientation/consciousness: patient oriented x3 Limitations: no limitations HEENT Head: Yes normocephalic and Yes atraumatic Neck Neck: Yes trachea midline, Yes supple and Yes no JVD Resp Effort & Inspection: normal respiratory effort Auscultation: clear to auscultation bilaterally Cardio Jugular venous distension: no JVD Palpation: normal PMI Rate: regular rate Rhythm: regular rhythm Heart sounds: S1 normal heart sound present, S2 normal heart sound present, no click, no gallops, no murmurs and no rubs GI Auscultation: normal bowel sounds Skin General skin exam: no rashes or lesions noted Neuro General: patient oriented x3 and no focal motor deficits Speech: No Abnormal speech present Extrem General: Yes no clubbing, cyanosis or edema Psych Appearance: grossly normal Assessment & Plan Assessment & Plan (1) Tachycardia: Code(s): R00.0 - Tachycardia, unspecified Plan: Patient has inappropriate tachycardia during exercise with much fast heart rate and expected for her functional status. Possible reasons could include relative volume depletion with reduced preload, deconditioning which is low likely in her case and may be mild autonomic dysfunction. At this point time I have suggested that there is no underlying structural heart disease and she can not exercise routinely and builder stamina up. I will also advised her to increase her volume intake especially water and salt intake prior to workouts to improve preload and hopefully improve her heart rate response to exercise. Also we discussed about aerobic thresholds and maintaining a higher heart rate for longer period time to improve her stroke volume. She understands this well. Her calcium score is 0 and she does not require any further therapy. Can repeated in 5 years Will follow up in the clinic if need be. Coding Level of Care Code Est Pt Level 3 (33602) Diagnoses Tachycardia R00.0
== END 2023-02-02 09:10 | disposition home or self-care (01) ==
PROVIDERS: PCP Physician Assistant; Visit Provider Internal Medicine Cardiovascular Disease
DX: R00.0 Tachycardia, unspecified (principal)
CPT/HCPCS: 99213

== ENCOUNTER → 2023-02-02 08:36 | Outpatient (BNVA) | payer OTHER, SELFPAY | PROVIDERS: PCP Physician Assistant; Visit Provider Internal Medicine Cardiovascular Disease ==

== ENCOUNTER 2023-03-28 14:57 | Outpatient (AMB) | payer OTHER, SELFPAY ==
--- NOTE | 2023-03-28 14:59 | A.OFFVIS_ITS ---
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 Toggle Press Folder And Feeder: Toggle Press Folder And Feeder offered & declined Accompanied by: Self / Same As Patient Allergies fluoxetine Adverse Reaction (Mild, Verified 03/28/23 15:07) cough Medication List - Last Reconciled 03/28/23 by Nanci Ivory LPN albuterol sulfate 90 mcg/actuation 2 puffs inhalation Q4-6H PRN fluticasone furoate-vilanterol 100-25 mcg/dose (Breo Ellipta) 1 inh inhalation DAILY norethindrone-e.estradiol-iron 1 mg-10 mcg (24)/10 mcg (2) (Lo Loestrin Fe) 1 tab PO DAILY HPI dyspnea : 3 month f/u HPI Details Melyssa is a pleasant 52 year old female, never smoker, with underlying asthma. She was started on Breo in December and reports notable improvements in dyspnea and chest tightness. At this time she denies cough, wheezing or chest tightness. Although she would like to continue on ICS/LABA, she would like to trial an inhaler that is not a dry powder as she has been having throat irritation with use. She continues to be quite active, using her albuterol PRN when running with good effect. She has been thoroughly evaluated by cardiology with 7 day holter, echo and stress test, all unremarkable, and cardiology felt tachycardia may be due to volume depletion with decreased preload volume. Since the last visit, she has not had any episodes of tachycardia. 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 [place] Gender identity: Female Cognitive needs: No Hearing needs: No Vision needs: No Review of Systems Const Denies chills, Denies excessive sweating, Denies fever(s), Denies headache(s) and Denies night sweats Eyes Denies dry eyes, Denies irritation and Denies itchy eyes ENT Reports Normal hearing present, Denies headache(s), Denies nasal congestion, Denies nasal discharge, Denies post nasal drip and Denies sore throat Card Denies chest pain, Denies chest pain at rest, Denies chest pain with activity, Denies claudication, Denies leg edema, Denies orthopnea and Denies paroxysmal nocturnal dyspnea Resp Denies chest congestion, Denies cough, Denies excessive phlegm production, Denies pain on inspiration, Denies pain with cough, Denies stridor and Denies wheezing Musc Denies myalgias Neuro Reports Normal hearing present and Denies headache(s) Endo Denies excessive sweating Rico/Lymph Denies lymphadenopathy Aller/Immun Denies itchy eyes, Denies seasonal rhinorrhea and Denies wheezing Physical Exam Vital Signs: Last Vital Signs Pulse 74 03/28/23 15:00 BP 122/64 03/28/23 15:00 Pulse Ox 100 03/28/23 15:00 Oxygen Delivery Method Room Air 03/28/23 15:00 BMI result Body Mass Index 23.1 Const General: cooperative, healthy appearing, comfortable, no acute distress, well developed and alert Orientation/consciousness: patient oriented x3 Limitations: no limitations HEENT Ears: hearing grossly normal bilaterally and external ears normal Eyes General: appearance normal, both eyes and all related structures Eyelids: Yes eyelids normal Sclerae: sclerae normal EOM: EOMs intact bilaterally Neck Neck: Yes normal visual inspection and Yes no lymphadenopathy Lymphatic: no lymphadenopathy noted Chest Chest palpation & inspection: normal inspection of the chest Resp Effort & Inspection: normal respiratory effort, able to speak in complete sentences, no audible wheezes, no cough, no stridor, not tachypneic, no tripod positioning and no use of accessory muscles Auscultation: clear to auscultation bilaterally Cardio Jugular venous distension: no JVD Rate: regular rate Rhythm: regular rhythm Skin Other: warm, dry General skin exam: no rashes or lesions noted Neuro General: patient oriented x3 Cranial nerves: Yes Normal hearing present Cognition (Neuro): normal cognition Gait exam (Neuro): Normal gait present Extrem General: Yes normal to inspection, Yes capillary refill normal, Yes no clubbing, cyanosis or edema and Yes no pedal edema Psych Appearance: grossly normal and well kempt Speech and movement: Normal speech and movement present and Clear speech present Affect: normal affect Attitude: cooperative Thought process: Normal thought process present Thought content: Normal thought content present Insight: Good insight present (Psych) Judgement: Good judgement present (Psych) Assessment & Plan Assessment & Plan (1) Asthma: Code(s): J45.909 - Unspecified asthma, uncomplicated (2) Pulmonary nodule: Code(s): R91.1 - Solitary pulmonary nodule Plan Melyssa has been doing well on Breo for control of respiratory symptoms however reports throat irritation with dry powder inhaler. Will switch to Dulera, soft mist inhaler, to see if she has decreased irritation. Patient aware to call if she has any issues with Dulera. Will follow up after one year follow up chest CT in October, as she had a 3 mm pulmonary nodule of RLL. All questions were answered and patient is in agreement of plan. Medications: New mometasone-formoterol 100-5 mcg/actuation (Dulera) 2 puffs inhalation BID 1 ea 6RF Coding Level of Care Code Est Pt Level 3 (81882) Diagnoses Asthma J45.909 Pulmonary nodule R91.1
[2023-03-28 15:00] VITALS: BP 122/64; PULSE 74; O2SAT 100; BMI 23.1
== END 2023-03-28 15:24 | disposition home or self-care (01) ==
PROVIDERS: PCP Physician Assistant; Visit Provider Nurse Practitioner Family
DX: J45.909 Unspecified asthma, uncomplicated (principal); R91.1 Solitary pulmonary nodule
CPT/HCPCS: 99213

== ENCOUNTER → 2023-03-28 14:57 | Outpatient (BNVA) | payer OTHER, SELFPAY | PROVIDERS: PCP Physician Assistant; Visit Provider Nurse Practitioner Family ==

== ENCOUNTER 2023-09-06 17:13 | Emergency (ER) | payer OTHER, SELFPAY ==
--- NOTE | ~2023-09-06 | XR_ITS ---
EXAMINATION: XR ANKLE, RIGHT. XR FOOT, RIGHT. CLINICAL INFORMATION: Injury with medial pain COMPARISON: None. TECHNIQUE: 3 views of the right ankle. 3 views of the right foot. FINDINGS: Ankle mortise is preserved. No acute fracture or malalignment. Anterolateral soft tissue swelling. No radiopaque foreign body. XR/XR ankle RT min 3V IMPRESSION: Anterolateral soft tissue swelling. No acute fracture or malalignment.
--- NOTE | ~2023-09-06 | XR_ITS ---
EXAMINATION: XR ANKLE, RIGHT. XR FOOT, RIGHT. CLINICAL INFORMATION: Injury with medial pain COMPARISON: None. TECHNIQUE: 3 views of the right ankle. 3 views of the right foot. FINDINGS: Ankle mortise is preserved. No acute fracture or malalignment. Anterolateral soft tissue swelling. No radiopaque foreign body. XR/XR foot RT min 3V IMPRESSION: Anterolateral soft tissue swelling. No acute fracture or malalignment.
--- NOTE | 2023-09-06 17:17 | ED_ITS ---
HPI - Extremity Injury (Lower) General Chief Complaint: Extremity Problem Stated Complaint: rt ankle pain Time Seen by Provider: 09/06/23 18:56 Source: patient Mode of arrival: ambulatory History of Present Illness ED Provider: Paddy MENDOZA Narrative: Patient is a 52-year-old female presenting to the emergency department with complaint of right ankle pain and swelling after missing the last step while carrying laundry down stairs prior to arrival. States she felt/heard a crack sensation and has had pain and swelling since. Denies numbness or tingling. Denies ecchymosis. Injury: Right: ankle Place: home Severity: severe Associated symptoms: snap/pop sensation Treatments prior to arrival: cold therapy Related Data Home Medications ?Medication ?Instructions ?Recorded ?Confirmed norethindrone 1 mg-ethinyl 1 tab PO DAILY 09/07/22 03/28/23 estradiol 10 mcg (24)-iron 10 mcg(2) tablet (Lo Loestrin Fe) Previous Rx's ?Medication ?Instructions ?Recorded albuterol sulfate 90 mcg/actuation 2 puff inhalation Q4-6H PRN 11/13/22 aerosol inhaler shortness of breath or wheezing #1 ea fluticasone propionate 115 2 puff inhalation Q12H #12 grams 04/17/23 mcg-salmeterol 21 mcg/actuation HFA inhaler (Advair HFA) fluticasone furoate 100 1 inh inhalation DAILY #60 ea 04/25/23 mcg-vilanterol 25 mcg/dose inhalation powder (Breo Ellipta) Allergies Allergy/AdvReac Type Severity Reaction Status Date / Time fluoxetine AdvReac Mild cough Verified 09/06/23 17:24 Review of Systems Review of Systems: As per HPI Yes all other systems are reviewed and are negative Constitutional: Constitutional: Reports as per HPI PMFSH Past Medical History Medical History Menopausal symptom Surgical History History of loop electrical excision procedure (LEEP) Hx of LASIK Family History Family History Father Bladder cancer Mother HTN (hypertension) Rheumatic arteritis Sarcoidosis Social History Social History (Updated 03/28/23 @ 15:10 by Nanci Ivory LPN) Housing: House Alcohol intake: current Alcohol intake frequency: a few times a month Patient Tobacco Use Status: Never used Tobacco Advance Directives: No Advance Directives Information Provided: No Current occupational status: employed Current occupation: 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 [place] Gender identity: Female Cognitive needs: No Hearing needs: No Vision needs: No Physical Exam Vital Signs: Vital Signs: Last Vital Signs Temp 96.8 F 09/06/23 19:18 Pulse 80 09/06/23 19:18 Resp 18 09/06/23 19:18 BP 134/81 09/06/23 19:18 Pulse Ox 97 09/06/23 19:18 O2 Del Method Room Air 09/06/23 19:18 BMI result Body Mass Index 22.6 Vital signs have been reviewed and appear to be correct. Blood pressure normal. Heart rate normal. Respiratory rate normal. Temperature normal. Oxygen saturation normal. Const: General: cooperative, healthy appearing and no acute distress Orientation/consciousness: oriented to person, oriented to place, oriented to time and patient oriented x3 Limitations: no limitations HEENT: Head: Yes normocephalic and Yes atraumatic Ears: external ears normal General nose exam: Normal external nose present Face and sinus: Yes face symmetric Mouth: oropharynx normal and moist mucous membranes Throat: Yes uvula midline Eyes: Pupils: Equal, round and reactive pupils present Neck: Neck: Yes normal visual inspection and Yes supple Resp: Effort & Inspection: normal respiratory effort and able to speak in comp lete sentences Auscultation: clear to auscultation bilaterally Cardio: Rate: regular rate Rhythm: regular rhythm Heart sounds: S1 normal heart sound present and S2 normal heart sound present GI: Palpation (GI): Soft to palpation and nontender Auscultation: normoactive bowel sounds : General: Yes no CVA tenderness Back/Spine/Pelvis: Back: no CVA tenderness Skin: General skin exam: elasticity normal and turgor normal Neuro: General: oriented to person, oriented to place, oriented to time, patient oriented x3, moves all extremities, no focal motor deficits and CN's II- XI intact bilaterally Cranial nerves: Yes Equal, round and reactive pupils present Cognition (Neuro): normal cognition Extrem: General: Yes full ROM, Yes no pedal edema and Yes no calf tenderness Right lower extremity: ankle Details: tenderness Location: of the lateral malleolus, swelling Details: laterally and abnormal ROM Details: with range as follows (normal plantarflexion, limited dorsiflexion); no ecchymosis and foot Details: vascular exam Details: dorsalis pedis pulse present and posterior tibial pulse present Psych: Mental Status: mental status grossly normal Affect: normal affect Thought process: Normal thought process present Course Course Course Narrative: This is a Rapid Medical Exam performed in triage by Blaire Ramirez PA-C. Full HPI, ROS and PE to be performed by primary ED provider. 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 Has ambulated minimally since incident. denies head trauma/LOC PE: In wheelchair. Mild right ankle swelling. + lateral foot/ankle with tenderness. Neurovascularly intact Plan: X-ray Medical Decision Making Medical Decision Making [facility] Narrative: Patient is a 52-year-old female presenting to the emergency department with complaint of right ankle pain and swelling after missing the last step while carrying laundry down stairs prior to arrival. On exam patient is awake, A+Ox3, VS WNL, afebrile, normal neurological exam without focal deficits, physical exam findings as above. Given reported symptoms and physical exam findings, initial differential includes right ankle strain, sprain, fracture, dislocation. X-ray right ankle and foot notable for soft tissue swelling, no acute fracture or dislocation. My interpretation is in agreement with the radiologist's interpretation. Results discussed with patient and all questions answered. Advised patient to keep ankle elevated while at rest and apply ice intermittently, alternate Tylenol and ibuprofen. Patient provided with air splint. Will refer to orthopedics for any ongoing symptoms. Advised patient follow-up with PCP as well. Return precautions discussed. Patient verbalized understanding of and agreement with plan. Differential Diagnosis Differential Diagnoses: The differential diagnosis associated with the presentation includes As per MDM. Independent Interpretation I performed an independent interpretation of an: Plain X-Ray Interpretation: No acute Fracture dislocation right ankle or foot Radiology Impression Discussion of test interpretation with radiology: I have reviewed the radiologist's reading. Radiologist Impression: XR/XR foot RT min 3V IMPRESSION: Anterolateral soft tissue swelling. No acute fracture or malalignment. XR/XR ankle RT min 3V IMPRESSION: Anterolateral soft tissue swelling. No acute fracture or malalignment. External Record Review External record reviewed: Inpatient record, Office record and Outpatient record Discharge Plan Discharge Clinical Impression: Right ankle sprain Patient Disposition: Home, Self-Care Instructions: Ankle Sprain (DC), Ankle Stirrup Splint (ED), R.I.C.E. Treatment (ED) Additional Instructions: You have been evaluated in the emergency department today for ankle pain. Your evaluation did not find evidence of medical conditions requiring emergent intervention at this time. Your x-rays did not show any fractures or dislocations. We have provided a splint for you to use while your ankle heals. Please rest, ice, and elevate your ankle, and resume normal activities as tolerated. We recommend you take 600mg ibuprofen every 6 hours or 650mg Tylenol every 6 hours as needed for pain. If needed you can alternate these medications as they take 1 medication every 3 hours. For instance at noon take ibuprofen, then at 3:00 p.m. take Tylenol, then at 6:00 p.m. take ibuprofen. Please schedule an appointment for follow-up with your primary care provider this week. Return to the emergency department if you experience worsening pain, numbness, tingling, change of color in your ankle/foot, or any other concerning symptoms. Prescriptions: No Action fluticasone propion-salmeterol [Advair HFA] 115-21 mcg/actuation HFA aerosol inhaler 2 puff inhalation Q12H Qty: 12 6RF fluticasone furoate-vilanterol [Breo Ellipta] 100-25 mcg/dose blister with device 1 inh inhalation DAILY Qty: 60 3RF Lo Loestrin Fe 1 mg-10 mcg (24)/10 mcg (2) tablet 1 tab PO DAILY albuterol sulfate 90 mcg/actuation HFA aerosol inhaler 2 puff inhalation Q4-6H PRN (Reason: shortness of breath or wheezing) Qty: 1 3RF Referrals: [facility] [Provider Group] Print Language: Thai
[2023-09-06 17:22] VITALS: BP 147/87; PULSE 93; RESP 20; TEMP 37; O2SAT 100; BMI 22.6
[2023-09-06 19:18] VITALS: BP 134/81; PULSE 80; RESP 18; TEMP 36; O2SAT 97
[2023-09-06 20:38] VITALS: BP 134/81; PULSE 80; RESP 18; TEMP 36; O2SAT 97
== END 2023-09-06 20:39 | disposition home or self-care (01) ==
PROVIDERS: Emergency Provider Emergency Medicine Emergency Medical Services; PCP Physician Assistant
DX: S93.401A Sprain of unspecified ligament of right ankle, initial encounter (principal); X58.XXXA Exposure to other specified factors, initial encounter; Y93.9 Activity, unspecified; Y92.9 Unspecified place or not applicable; Y99.9 Unspecified external cause status; M25.571 Pain in right ankle and joints of right foot
CPT/HCPCS: 73610; 73630; 99283

== ENCOUNTER 2023-09-10 07:02 | Outpatient (REF) | payer OTHER, SELFPAY ==
[2023-09-10 08:00] LABS: Hematocrit 40.4 % (37.0-47.0); Hemoglobin 13.5 g/dl (12.0-16.0); Mean Corpuscular HGB Conc 33.4 g/dl (31.0-35.0); Mean Corpuscular Hemoglobin 30.5 pg (27.0-33.0); Mean Corpuscular Volume 91.2 fL (80.0-98.0); Platelet Count 338 X10*3/uL (160-400); Red Blood Count 4.43 X10*6/uL (4.20-5.50); Red Cell Distribution Width 12.1 % (11.0-16.0); White Blood Count 6.4 X10*3/uL (4.8-10.8)
[2023-09-10 08:38] LABS: Alanine Aminotransferase 14 U/L (0-31); Albumin Level 3.8 g/dL (3.5-5.0); Alkaline Phosphatase 37 U/L (39-117); Anion Gap 11 (12-20); Aspartate Amino Transferase 19 U/L (5-31); Bilirubin Total 0.6 mg/dL (0.0-1.0); Blood Urea Nitrogen 15 mg/dL (9-16); Calcium 9.3 mg/dL (8.4-10.2); Carbon Dioxide 25 mmol/L (22-29); Chloride 109 mmol/L (96-108); Cholesterol 194 mg/dL (<200); Estimated Glomerular Filt Rate > 60; Glucose Fasting 87 mg/dL (60-99); HDL Cholesterol 55 mg/dL (>40); LDL Cholesterol Calculated 128 mg/dL (<100); Potassium 4.1 mmol/L (3.3-5.1); Sodium 141 mmol/L (135-145); Total Protein 6.6 g/dL (6.5-8.0); Triglycerides 58 mg/dL (<150)
== END 2023-09-10 07:03 | disposition home or self-care (01) ==
LOC: HO.LAB 07:02
PROVIDERS: PCP Physician Assistant; Visit Provider Physician Assistant
DX: E78.9 Disorder of lipoprotein metabolism, unspecified (principal); J45.909 Unspecified asthma, uncomplicated; Z13.1 Encounter for screening for diabetes mellitus
CPT/HCPCS: 36415; 80053; 80061; 85027

== ENCOUNTER 2023-09-12 15:48 | Outpatient (AMB) | payer OTHER, SELFPAY ==
--- NOTE | 2023-09-12 15:49 | A.OFFPC_ITS ---
Vital Signs 09/12/23 15:53 Height 5 ft 6 in Weight 145 lb BMI 23.4 BP 138/88 Blood Pressure Location Lt brachial Position Sitting Pulse 71 Pulse Source Pulse Oximeter Pulse Oximetry (%) 99 Oxygen Delivery Method Room Air Intake Visit Reasons: pe Intake Note: Patient is here today for a physical. 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: No Accompanied by: Self / Same As Patient Allergies fluoxetine Adverse Reaction (Mild, Verified 09/12/23 15:54) cough Medication List - Last Reconciled 09/12/23 by Michael Vicente PA-C albuterol sulfate 90 mcg/actuation 2 puffs inhalation Q4-6H PRN fluticasone furoate-vilanterol 100-25 mcg/dose (Breo Ellipta) 1 inh inhalation DAILY norethindrone-e.estradiol-iron 1 mg-10 mcg (24)/10 mcg (2) (Lo Loestrin Fe) 1 tab PO DAILY Tobacco use date assessed: 09/12/23 Dental Screening Dental Screen Date: 09/12/23 Did you have a dental visit in the last 12 months?: Yes Did you have a dental problem in the last 6 months where you did not have access to dental care?: No Was dental information given to patient?: Patient has dentist HPI pe HPI Details patient is a 52-year-old female here today for annual physical. ? Patient has a past medical history significant for?asthma and borderline high cholesterol Concern--> reports recently injuring her right ankle and was seen at the ER. X- rays without any fractures. Does still have some swelling and bruising over her right ankle. She is interested in following up with Orthopedics and doing physical therapy. .. Asthma: Recently diagnosed with asthma and has been followed by the [facility]. Has been started on maintenance inhaler Breo which has been very helpful. Not able to do long-distance running with no pulmonary issues. .. ? Vaccines:? up-to-date with Tdap,? up-to-date with COVID vaccine, up-to-date flu vaccine, needs pneumonia vaccine .. Mammo : Goes to [facility] for her Mammo . Colorectal cancer screening:? Done in 2022 normal, repeat 10 years Laboratory Tests 08/12/20 09/07/21 09/05/22 07:48 07:20 07:24 WBC 5.1 RBC 4.49 Hgb 12.1 Creatinine 0.89 0.94 Cholesterol 223 LDL Cholesterol, C alc 09/13/22 09/10/23 07:14 07:09 WBC RBC Hgb 13.5 Creatinine 0.84 Cholesterol 201 194 LDL Cholesterol, C alc 128 H [facility] Medical History (Updated 09/13/23 @ 07:10 by Michael Vicente PA-C) Exertional shortness of breath Menopausal symptom Surgical History History of loop electrical excision procedure (LEEP) Hx of LASIK Family History Father Bladder cancer Mother HTN (hypertension) Rheumatic arteritis Sarcoidosis Social History Housing: House Alcohol intake: current Alcohol intake frequency: a few times a month Patient Tobacco Use Status: Never used Tobacco e-Cigarette/Vaping Use: Never Used service: No Current occupational status: employed 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 1. Little interest or pleasure in doing things: not at all 2. Feeling down, depressed, or hopeless: not at all 3. Trouble falling or staying asleep, or sleeping too much: not at all 4. Feeling tired or having little energy: not at all 5. Poor appetite or overeating: not at all 6. Feeling bad about yourself - or that you are a failure or have let yourself or your family down: not at all 7. Trouble concentrating on things, such as reading the newspaper or watching television: not at all 8. Moving or speaking so slowly that other people could have noticed. Or the opposite - being so fidgety or restless that you have been moving around a lot more than usual: not at all 9. Thoughts that you would be better off or of hurting yourself in some way: not at all Total score: 0 Depression Screening Interpretation: Negative Depression Screening Done: Yes 78356 - PHQ-9 Billing: Yes Source: Developed by Drs. Arvind Panda, Moni Davidson, Vitaly Copeland and colleagues, with an educational marty from [employer]. Thrive Questionnaire Date Thrive assessed: 09/12/23 I am a: Patient What is your living situation today?: I have a steady place to live Within the past 12 months, did the food you bought not last and you didn't have the money to get more?: Never true Within the past 12 months, did you worry whether your food would run out before you got money to buy more?: Never true Do you have trouble paying for medicines?: No Do you have trouble getting transportation to medical appointments?: No Do you have trouble paying your heating and electricity bill?: No Do you have trouble taking care of your child, family member or friend?: No Do you have trouble with day-to-day activities such as bathing, preparing meals, shopping, managing finances, etc.?: No Are you currently unemployed and looking for a job?: No Are you interested in more education?: No Please select the resources that you would like help with: None Currently or been in a relationship where the following occur: No concerns reported THRIVE Score: 0 AUDIT C Alcohol Use Questionnaire (AUDIT-C) 1. How often do you have a drink containing alcohol?: 2-4 times a month 2. How many drinks containing alcohol do you have on a typical day when you are drinking?: 1 or 2 3. How often do you have six or more drinks on one occasion?: Never Total Score: 2 NADEEN-7 AMB Questionnaire NADEEN-7 Date NADEEN - 7 assessed: 09/12/23 Feeling nervous, anxious, or on edge: 0 = Not at all Not being able to stop or control worryin = Not at all Worrying too much about different things: 0 = Not at all Trouble relaxin = Not at all Being so restless that it is hard to sit still: 0 = Not at all Becoming easily annoyed or irritable: 0 = Not at all Feeling afraid as if something awful might happen: 0 = Not at all Total NADEEN-7 score (0-4 normal; 5-9 mild; 10-14 moderate; 15-21 severe): 0 Source: Developed by Moni Walker Kurt Kroenke and colleagues, with an educational marty from [employer]. NADEEN-7 Assessment Billing NADEEN-7 Assessment Tool: NADEEN-7 Assessment 95751 ACT Questionnaire In the past 4 weeks, how much of the time did your asthma keep you from getting as much done at work, school or at home?: None of the time During the past 4 weeks, how often have you had shortness of breath?: Not at all During the past 4 weeks, how often did your asthma symptoms wake you up at night or earlier than usual in the morning?: Not at all During the past 4 weeks, how often have you had to use your rescue inhaler or nebulizer medication?: Not at all How would you rate your asthma control during the past 4 weeks?: Completely controlled ACT Interpretation: Negative Score: 25 Review of Systems Const Denies body aches, Denies chills, Denies excessive sweating, Denies fatigue, Denies fever(s) and Denies headache(s) Eyes Denies blurry vision ENT Denies dysphagia, Denies vertigo, Denies dizziness, Denies headache(s), Denies hearing loss and Denies tinnitus Card Denies chest pain, Denies chest pain with activity, Denies syncope, Denies irregular heart rhythm and Denies dyspnea Resp Denies chest congestion, Denies cough, Denies hemoptysis, Denies dyspnea and Denies wheezing GI Denies abdominal pain, Denies melena, Denies hematochezia, Denies coffee ground emesis, Denies dysphagia, Denies diarrhea, Denies nausea and Denies vomiting Denies urinary frequency, Denies dysuria, Denies urinary hesitancy and Denies urinary urgency Musc Denies arthralgias, Denies limited range of motion, Denies muscle cramps and Denies muscle weakness Skin/Breast Denies rash and Denies skin ulcer Neuro Denies Abnormal speech present, Denies confusion, Denies vertigo, Denies dizziness, Denies syncope, Denies headache(s), Denies memory loss and Denies seizure-like activity Psych Denies anxiety, Denies confusion, Denies depression, Denies memory loss, Denies panic attacks and Denies paranoia Endo Denies excessive sweating, Denies fatigue, Denies flushing, Denies polydipsia and Denies polyuria Aller/Immun Denies wheezing Physical exam (Primary Care) Vital Signs: Last Vital Signs Pulse 71 09/12/23 15:53 BP 138/88 09/12/23 15:53 Pulse Ox 99 09/12/23 15:53 Oxygen Delivery Method Room Air 09/12/23 15:53 BMI result Body Mass Index 23.4 Tobacco/Smoking Status: Tobacco use Status Tobacco use date assessed 09/12/23 09/12/23 15:50 Patient Tobacco Use Status Never used Tobacco 09/12/23 16:00 e-Cigarette/Vaping Use Never Used 09/12/23 16:00 PHQ-9: PHQ-9 Score PHQ-9: Total score 0 09/12/23 16:19 Depression Screening Interpretation: Negative Thrive Assessment: Date of Thrive Assessment Date Thrive assessed 09/12/23 09/12/23 15:50 Currently or been in a relationship where the following occur: No concerns reported Const General: cooperative, comfortable, no acute distress, alert and awake; No confusion Orientation/consciousness: oriented to person, oriented to place, patient oriented x3 and No confusion HENMT Head: Yes normocephalic Ears: external ears normal and TM's normal bilaterally Face and sinus: No sinus tenderness Mouth: Normal oral and palatal mucosa present and tongue normal Teeth and gingiva: dentition normal and gingiva normal Throat: Yes posterior oropharynx normal, Yes tonsils normal and Yes uvula midline Eyes Conjunctivae: conjunctivae normal Sclerae: sclerae normal Pupils: Equal, round and reactive pupils present EOM: EOMs intact bilaterally Direct Ophthalmoscopy: No no photophobia Neck Neck: Yes no lymphadenopathy, No tender and Yes no JVD Thyroid: Thyroid normal Carotids: no bruits Chest Chest palpation & inspection: no tenderness Resp Effort & Inspection: normal respiratory effort, no audible wheezes, not labored and no stridor Auscultation: no crackles, no rales, no rhonchi and no wheezes Cardio Jugular venous distension: no JVD Rate: regular rate, not bradycardic and not tachycardic Rhythm: regular rhythm Bruits: no carotid bruits Peripheral pulses: Peripheral pulses 2+ throughout GI Inspection: Yes normal to inspection, No abdominal wall ecchymosis and No visible herniation Palpation (GI): Soft to palpation, nontender, no guarding, not rigid and No hepatosplenomegaly present Auscultation: normoactive bowel sounds General: Yes no CVA tenderness Back/Spine/Pelvis Back: no CVA tenderness and No back tenderness Cervical Spine: cervical ROM normal Thoracic/Lumbar Spine: thoracic and lumbar spine normal to inspection, straight leg raise negative bilaterally, No thoraco-lumbar ROM limited and No lumbar spinal tenderness Skin Lesions: no lesions Rashes: no rashes Wounds: no wounds Neuro General: oriented to person, oriented to place, patient oriented x3, CN's II-XI intact bilaterally and No confusion Cranial nerves: Yes Equal, round and reactive pupils present and Yes Normal accommodation reflex present Cognition (Neuro): normal cognition Speech: No Abnormal speech present Gait exam (Neuro): Normal gait present Motor exam (neuro): 5/5 motor strength present throughout Extrem Right upper extremity: full ROM; no cyanosis Left upper extremity: full ROM; no cyanosis Right lower extremity: no edema Left lower extremity: no edema Psych Appearance: grossly normal Mental Status: mental status grossly normal Affect: normal affect Attitude: cooperative Thought process: Normal thought process present Immunizations pneumoc 20-dominic conj-dip cr(PF) 0.5 mL IM syringe Performing Provider: Michael Vicente PA-C Performing Location: [facility] Administered by: JOSE Gomez on 09/12/23 16:20 Dose Route Admin Location Dispensed Lot Number Expiration Date [facility] Shop Service Technician 0.5 mL IM Left Deltoid 0.5 mL [id number] 07/20/24 8458-8742-79 [employer] VIS Given Date VIS Provided VIS Publication Date 09/12/23 Single Vaccine 21 Eligibility Eligibility Date Funding Source Not [facility] Eligible 09/12/23 Private Assessment and Plan Assessment & Plan (1) Annual physical exam: Code(s): Z00.00 - Encounter for general adult medical examination without abnormal findings (2) Borderline high cholesterol: Code(s): E78.9 - Disorder of lipoprotein metabolism, unspecified Plan: Patient does have borderline high total cholesterol. She reports she has been eating well and continues to exercise. Most recent fasting lipid panel showing excellent control over total cholesterol. Will continue follow lipid panel. (3) Asthma: Code(s): J45.909 - Unspecified asthma, uncomplicated Qualifiers: Asthma complication type: unspecified Asthma persistence: intermittent Asthma severity: mild Qualified Code(s): J45.20 - Mild intermittent asthma, uncomplicated Plan: Now followed by pulmonology. Has been started on Breo with excellent results. Now able to run several miles without any issues with the breathing. (4) Right ankle sprain: Code(s): S93.401A - Sprain of unspecified ligament of right ankle, initial encounter Qualifiers: Encounter type: subsequent encounter Involved ligament of ankle: anterior talofibular ligament Qualified Code(s): S93.491D - Sprain of other ligament of right ankle, subsequent encounter Plan: As per HPI patient recently injured her right ankle bring a laundry down the stairs. She would like to do physical therapy to regain range of motion and strength in her ankle. Orders: Orders Lipid Panel 11 Months E78.9 - Disorder of lipoprotein metabolism, unspecified PT Evaluation and Treatment 09/12/23 S93.401A - Sprain of unspecified ligament of right ankle, initial encounter Complete Blood Count no Diff 11 Months J45.20 - Mild intermittent asthma, uncomplicated Comprehensive [place]. Panel Fast 11 Months Z13.1 - Encounter for screening for diabetes mellitus Pneumococcal 20 Immunization 09/12/23 Z13.1 - Encounter for screening for diabetes mellitus, Z23 - Encounter for immunization Coding Level of Care Code Est Pt Prev Care 40-64y(01978) Diagnoses Annual physical exam Z00.00 Borderline high cholesterol E78.9 Mild intermittent asthma, unspecified whether complicated J45.20 Asthma complication type: unspecified Asthma persistence: intermittent Asthma severity: mild Sprain of anterior talofibular ligament of right ankle, subsequent encounter S93.491D Encounter type: subsequent encounter Involved ligament of ankle: anterior talofibular ligament Additional Codes NADEEN-7 Assessment Billing - NADEEN-7 Assessment Tool: NADEEN-7 Assessment 35962 ([id number])
[2023-09-12 15:53] VITALS: BP 138/88; PULSE 71; O2SAT 99; BMI 23.4
== END 2023-09-12 16:18 | disposition home or self-care (01) ==
PROVIDERS: PCP Physician Assistant; Visit Provider Physician Assistant
DX: Z23 Encounter for immunization (principal); Z13.1 Encounter for screening for diabetes mellitus
CPT/HCPCS: 90471; 90677; 99396

== ENCOUNTER 2023-09-13 12:57 | Outpatient (AMB) | payer OTHER, SELFPAY ==
--- NOTE | 2023-09-13 13:15 | MHC.OFFVIS ---
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 Patient states she missed a step and fell on her right ankle. Today, patient describes pain as not so bad , 2 on a 0-10 pain scale. She is currently wearing an air cast which helps with pain. Patient states if she removes the air cast she feels a shooting sensation. Patient has been taking Ibuprofen, 2 tabs, unsure on the dose, that have helped with pain. 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 Patient reports that she was walking down a flight of stairs when her ankle rolled from under her, she felt a popping sensation, and immediately began to experience pain and swelling in the lateral aspect of her right ankle. Patient was evaluated in the ED, where x-rays were taken revealing no fracture or bony abnormality. Patient was given a stirrup ankle brace in the ED for support, which she states helped significantly, that she continues to wear while weight-bearing. Today, the patient reports that her pain, edema and ecchymosis have all improved significantly since date of injury. Patient inquires about the underlying anatomy behind her injury, and inquires about the treatment course. No other acute complaints or concerns at this time. [facility] Medical History (Updated 09/13/23 @ 07:10 by Michael Vicente PA-C) Exertional shortness of breath Menopausal symptom Surgical History History of loop electrical excision procedure (LEEP) Hx of LASIK Family History Father Bladder cancer Mother HTN (hypertension) Rheumatic arteritis Sarcoidosis Social History (Updated 09/13/23 @ 13:18 by Dalymar Verdugo, RMA) Housing: House Alcohol intake: current Alcohol intake frequency: a few times a month Patient Tobacco Use Status: Never used Tobacco e-Cigarette/Vaping Use: Never Used service: No Current occupational status: employed 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, [employer]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 [place] Gender identity: Female Cognitive needs: No Hearing needs: No Vision needs: No Review of Systems Const All systems reviewed & are unremarkable except as noted in HPI and below Physical Exam Vital Signs: BMI result Body Mass Index 23.4 Extrem Other: On inspection, there is edema over the lateral malleolus of the right ankle Ecchymosis about the lateral aspect of the right ankle and foot noted No erythema evidence of infection No lacerations, abrasions or open areas On palpation, the patient has tenderness over the lateral right ankle, particularly over the anterior talofibular ligament No tenderness to palpation over the right ankle syndesmosis No tenderness to palpation about the medial ankle or foot There is very mild increase in laxity to inversion of the right foot as compared to the left Patient also reports a sore sensation with passive inversion of the foot Active range of motion reveals slightly decreased capacity to dorsiflex and invert foot due to pain Distal sensation intact Capillary refill brisk Results Reviewed Results Reviewed: X-rays taken in the emergency department on 09/06/2023 and independently reviewed by me, Camden Link PA-C, demonstrate no fracture or acute bony abnormality Assessment & Plan Assessment & Plan (1) Right ankle sprain: Code(s): S93.401A - Sprain of unspecified ligament of right ankle, initial encounter Category: Medical Qualifiers: Encounter type: subsequent encounter Involved ligament of ankle: anterior talofibular ligament Qualified Code(s): S93.491D - Sprain of other ligament of right ankle, subsequent encounter Plan 1. Right ankle sprain Date of injury 09/06/2023 Patient is advised about the nature of her injury and the typical treatment course Patient is a advised she can continue to weightbear as tolerated Patient is advised that she can continue use of ankle brace given to her in the ED for the next couple of weeks, but after that time she should begin to wean off of using the brace Patient is also advised that she can begin a slow ramp up back to normal activity, and avoiding activities such as hiking or running on uneven terrain for at least 2-3 weeks in order to prevent re-injury. Patient will follow-up as needed with any acute concerns. Coding Level of Care Code New Pt Level 3 (62271) Diagnoses Sprain of anterior talofibular ligament of right ankle, subsequent encounter S93.491D Encounter type: subsequent encounter Involved ligament of ankle: anterior talofibular ligament
[2023-09-13 13:16] VITALS: BMI 23.4
== END 2023-09-13 13:40 | disposition home or self-care (01) ==
PROVIDERS: PCP Physician Assistant
DX: S93.491D Sprain of other ligament of right ankle, subsequent encounter (principal)
CPT/HCPCS: 99203

== ENCOUNTER → 2023-09-13 12:57 | Outpatient (BNVA) | payer OTHER, SELFPAY | PROVIDERS: PCP Physician Assistant ==

== ENCOUNTER 2023-10-23 07:27 | Outpatient (REF) | payer OTHER, SELFPAY ==
--- NOTE | ~2023-10-23 | CT_ITS ---
EXAMINATION: CT CHEST WITHOUT CONTRAST CLINICAL INFORMATION: Solitary pulmonary nodule. COMPARISON: October 27, 2022. TECHNIQUE: Multidetector volumetric CT imaging of the chest was done. Axial MIP volume rendering provided. Sagittal and coronal reformatted images were obtained. This CT examination was performed using dose optimization techniques as appropriate, variously including the following: *Automated exposure control *Adjustment of mA and/or kV according to patient size (this includes techniques or standardized protocols for targeted exams where dose is matched to indication/reason for exam; i.e. extremities or head) *Use of iterative reconstruction technique DLP: 154 mGy-cm FINDINGS: LUNGS: The 3 mm right lower lobe pulmonary nodule identified on October 27, 2022 appears unchanged and probably represents a benign intrapulmonary lymph node (image 523, series 5). Calcified right lower lobe granuloma (image 488, series 5). No evidence of inflammation or suspicious nodules. MEDIASTINUM: The mediastinum appears unremarkable. CORONARY ARTERY CALCIFICATION: None visualized on this study. PLEURA: There is no pleural effusion. No pleural mass or thickening. AXILLA: No lymphadenopathy by size criteria. UPPER ABDOMEN: Unremarkable. OSSEOUS STRUCTURES: Unremarkable. CT/CT chest wo IV con IMPRESSION: The 3 mm right lower lobe pulmonary nodule identified on October 27, 2022 appears unchanged and probably represents a benign intrapulmonary lymph node. Further dedicated follow-up imaging is indicated, per Fleischner Society guidelines. Electronically signed by: Jhonny Braswell MD 11/09/2023 12:54 PM EDT
== END 2023-10-23 07:28 | disposition home or self-care (01) ==
LOC: HO.CT 07:27
PROVIDERS: PCP Physician Assistant; Visit Provider Nurse Practitioner Family
DX: R91.1 Solitary pulmonary nodule (principal)
CPT/HCPCS: 71250

== ENCOUNTER 2023-11-13 13:49 | Outpatient (AMB) | payer OTHER, SELFPAY ==
--- NOTE | 2023-11-13 13:58 | A.OFFVIS_ITS ---
Vital Signs 11/13/23 13:59 Height 5 ft 6 in Weight 149 lb 2 oz BMI 24.1 BP 118/76 Blood Pressure Location Rt brachial Position Sitting Pulse 55 Pulse Source Pulse Oximeter Pulse Oximetry (%) 99 Oxygen Delivery Method Room Air Intake Visit Reasons: dyspnea: f/u after CT Allergies fluoxetine Adverse Reaction (Mild, Verified 11/13/23 14:01) cough HPI HPI dyspnea: f/u after CT: Details: Melyssa is a pleasant 53 year old female, never smoker, with underlying asthma. At baseline, she has been doing quite well with Breo, occasionally will use albuterol but this is infrequent. She continues to be quite active with minimal respiratory symptoms. She has noted two occasions where she had increased respiratory symptoms with exposures to air pollution, otherwise controlled. She denies any visits to urgent care or hospitalizations related to respiratory distress. Today she presents to review chest CT results. Prior chest CT 10/2022 revealed 3 mm right lower lobe pulmonary nodule. [facility] Medical History (Updated 09/13/23 @ 07:10 by Michael Vicente PA-C) Exertional shortness of breath Menopausal symptom Surgical History History of loop electrical excision procedure (LEEP) Hx of LASIK Family History Father Bladder cancer Mother HTN (hypertension) Rheumatic arteritis Sarcoidosis Social History Housing: House Alcohol intake: current Alcohol intake frequency: a few times a month Patient Tobacco Use Status: Never used Tobacco e-Cigarette/Vaping Use: Never Used service: No Current occupational status: employed 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, 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 [place] Gender identity: Female Cognitive needs: No Hearing needs: No Vision needs: No Review of Systems Const Denies chills, Denies excessive sweating, Denies fever(s), Denies headache(s) and Denies night sweats Eyes Denies dry eyes, Denies irritation and Denies itchy eyes ENT Reports Normal hearing present, Denies headache(s), Denies nasal congestion, Denies nasal discharge, Denies post nasal drip and Denies sore throat Card Denies chest pain, Denies chest pain at rest, Denies chest pain with activity, Denies claudication, Denies leg edema, Denies dyspnea, Denies dyspnea on exertion, Denies orthopnea and Denies paroxysmal nocturnal dyspnea Resp Denies chest congestion, Denies cough, Denies excessive phlegm production, Denies pain on inspiration, Denies pain with cough, Denies dyspnea, Denies dyspnea on exertion, Denies stridor and Denies wheezing Musc Denies myalgias Neuro Reports Normal hearing present and Denies headache(s) Endo Denies excessive sweating Rico/Lymph Denies lymphadenopathy Aller/Immun Denies itchy eyes, Denies seasonal rhinorrhea and Denies wheezing Physical Exam Vital Signs: Last Vital Signs Pulse 55 11/13/23 13:59 BP 118/76 11/13/23 13:59 Pulse Ox 99 11/13/23 13:59 Oxygen Delivery Method Room Air 11/13/23 13:59 BMI result Body Mass Index 24.1 Const General: cooperative, healthy appearing, comfortable, no acute distress, well developed and alert Orientation/consciousness: patient oriented x3 Limitations: no limitations HEENT Head: Yes normal to inspection, Yes normocephalic and Yes atraumatic Ears: hearing grossly normal bilaterally and external ears normal Eyes General: appearance normal, both eyes and all related structures Eyelids: Yes eyelids normal Sclerae: sclerae normal EOM: EOMs intact bilaterally Neck Neck: Yes normal visual inspection and Yes no lymphadenopathy Lymphatic: no lymphadenopathy noted Chest Chest palpation & inspection: normal inspection of the chest Resp Effort & Inspection: normal respiratory effort, able to speak in complete sentences, no audible wheezes, no cough, no stridor, not tachypneic, no tripod positioning and no use of accessory muscles Auscultation: clear to auscultation bilaterally Cardio Jugular venous distension: no JVD Rate: regular rate Rhythm: regular rhythm Skin Other: warm, dry General skin exam: no rashes or lesions noted Neuro General: patient oriented x3 Cranial nerves: Yes Normal hearing present Cognition (Neuro): normal cognition Gait exam (Neuro): Normal gait present Extrem General: Yes normal to inspection, Yes capillary refill normal, Yes no clubbing, cyanosis or edema and Yes no pedal edema Psych Appearance: grossly normal and well kempt Speech and movement: Normal speech and movement present and Clear speech present Affect: normal affect Attitude: cooperative Thought process: Normal thought process present Thought content: Normal thought content present Insight: Good insight present (Psych) Judgement: Good judgement present (Psych) Results Reviewed Results Reviewed: [address] [address] [address] Scan Report Signed Patient: Melyssa Parra MR#: [id number] : 1970 Acct:[id number] Age/Sex: 52 / F ADM Date: 10/23/23 Loc: HO.CT Attending Dr: Aleena Arreola NP Ordering Physician: Aleena Arreola NP Date of Service: 10/23/23 Procedure(s): CT chest wo IV con Accession Number(s): [id number] cc: Michael Vicente PA-C; Aleena Arreola NP~ EXAMINATION: CT CHEST WITHOUT CONTRAST CLINICAL INFORMATION: Solitary pulmonary nodule. COMPARISON: October 27, 2022. TECHNIQUE: Multidetector volumetric CT imaging of the chest was done. Axial MIP volume rendering provided. Sagittal and coronal reformatted images were obtained. This CT examination was performed using dose optimization techniques as appropriate, variously including the following: *Automated exposure control *Adjustment of mA and/or kV according to patient size (this includes techniques or standardized protocols for targeted exams where dose is matched to indication/reason for exam; i.e. extremities or head) *Use of iterative reconstruction technique DLP: 154 mGy-cm FINDINGS: LUNGS: The 3 mm right lower lobe pulmonary nodule identified on October 27, 2022 appears unchanged and probably represents a benign intrapulmonary lymph node (image 523, series 5). Calcified right lower lobe granuloma (image 488, series 5). No evidence of inflammation or suspicious nodules. MEDIASTINUM: The mediastinum appears unremarkable. CORONARY ARTERY CALCIFICATION: None visualized on this study. PLEURA: There is no pleural effusion. No pleural mass or thickening. AXILLA: No lymphadenopathy by size criteria. UPPER ABDOMEN: Unremarkable. OSSEOUS STRUCTURES: Unremarkable. CT/CT chest wo IV con IMPRESSION: The 3 mm right lower lobe pulmonary nodule identified on October 27, 2022 appears unchanged and probably represents a benign intrapulmonary lymph node. Further dedicated follow-up imaging is indicated, per Fleischner Society guidelines. Electronically signed by: Jhonny Braswell MD 11/09/2023 12:54 PM EDT Dictated By: Jhonny Braswell Signed By: <Electronically signed by Jhonny Braswell in [place]> 11/09/23 1254 DD/ 0735 TD/TT: 10/23/23 0750 Button Clamper: Assessment & Plan Assessment & Plan (1) Asthma: Code(s): J45.909 - Unspecified asthma, uncomplicated Category: Medical Qualifiers: Asthma complication type: unspecified Asthma persistence: intermittent Asthma severity: mild Qualified Code(s): J45.20 - Mild intermittent asthma, uncomplicated (2) Pulmonary nodule: Code(s): R91.1 - Solitary pulmonary nodule Category: Medical Plan At this time, Melyssa has been well controlled on current regimen, advised to continue. Reviewed chest CT which revealed stable 3 mm RLL nodule. Will send for repeat chest CT in 1 year to assess stability, if unchanged no need for further follow up imaging. All questions were answered and patient is in agreement of plan. Will follow up in 9-12 months or sooner if needed. Orders: Orders CT chest wo IV con 11 Months R91.1 - Solitary pulmonary nodule Medications: Refilled fluticasone furoate-vilanterol 100-25 mcg/dose (Breo Ellipta) 1 ea inhalation DAILY 60 ea 11RF Coding Level of Care Code Est Pt Level 4 (56971) Diagnoses Mild intermittent asthma, unspecified whether complicated J45.20 Asthma complication type: unspecified Asthma persistence: intermittent Asthma severity: mild Pulmonary nodule R91.1
[2023-11-13 13:59] VITALS: BP 118/76; PULSE 55; O2SAT 99; BMI 24.1
== END 2023-11-13 14:17 | disposition home or self-care (01) ==
PROVIDERS: PCP Physician Assistant; Visit Provider Nurse Practitioner Family
DX: J45.20 Mild intermittent asthma, uncomplicated (principal); R91.1 Solitary pulmonary nodule
CPT/HCPCS: 99214

== ENCOUNTER → 2023-11-13 13:49 | Outpatient (BNVA) | payer OTHER, SELFPAY | PROVIDERS: PCP Physician Assistant; Visit Provider Nurse Practitioner Family ==

== ENCOUNTER 2024-06-17 15:07 | Outpatient (AMB) | payer OTHER, SELFPAY ==
[2024-06-17 15:13] VITALS: BP 108/60; PULSE 63; O2SAT 98; BMI 24.5
--- NOTE | 2024-06-17 15:13 | MHC.OFFVIS ---
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 At baseline, she has been doing quite well with Breo, rarely requiring albuterol MDI. She continues to be quite active with minimal respiratory symptoms. Today she presents for an acute visit. She noticed about a month ago tickle in throat causing a cough, which has been persistent. She denies any triggers and has trialed OTC antihistamine with no improvement. She has not had any recent allergy testing. She continues to report cough as well as some nasal congestion. She denies any dyspnea, wheezing or chest tightness. She denies any visits to urgent care or hospitalizations related to respiratory distrress. [facility] Medical History (Updated 06/17/24 @ 15:36 by Aleena Arreola NP) Exertional shortness of breath Menopausal symptom Surgical History History of loop electrical excision procedure (LEEP) Hx of LASIK Family History Father Bladder cancer Mother HTN (hypertension) Rheumatic arteritis Sarcoidosis Social History Housing: House Alcohol intake: current Alcohol intake frequency: a few times a month Patient Tobacco Use Status: Never used Tobacco e-Cigarette/Vaping Use: Never Used service: No Current occupational status: employed 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, 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 [place] Gender identity: Female Cognitive needs: No Hearing needs: No Vision needs: No Review of Systems Const Denies chills, Denies excessive sweating, Denies fever(s), Denies headache(s) and Denies night sweats Eyes Denies dry eyes, Denies irritation and Denies itchy eyes ENT Reports Normal hearing present, Denies headache(s), Denies nasal congestion, Denies nasal discharge and Denies sore throat Card Denies chest pain, Denies chest pain at rest, Denies chest pain with activity, Denies claudication, Denies leg edema, Denies dyspnea, Denies dyspnea on exertion, Denies orthopnea and Denies paroxysmal nocturnal dyspnea Resp Denies chest congestion, Denies excessive phlegm production, Denies pain on inspiration, Denies pain with cough, Denies dyspnea, Denies dyspnea on exertion, Denies stridor and Denies wheezing Musc Denies myalgias Neuro Reports Normal hearing present and Denies headache(s) Endo Denies excessive sweating Rico/Lymph Denies lymphadenopathy Aller/Immun Denies itchy eyes, Denies seasonal rhinorrhea and Denies wheezing Physical Exam Vital Signs: Last Vital Signs Pulse 63 06/17/24 15:13 BP 108/60 06/17/24 15:13 Pulse Ox 98 06/17/24 15:13 Oxygen Delivery Method Room Air 06/17/24 15:13 BMI result Body Mass Index 24.5 Const General: cooperative, healthy appearing, comfortable, no acute distress, well developed and alert Orientation/consciousness: patient oriented x3 Limitations: no limitations HEENT Head: Yes normal to inspection, Yes normocephalic and Yes atraumatic Ears: hearing grossly normal bilaterally and external ears normal Eyes General: appearance normal, both eyes and all related structures Eyelids: Yes eyelids normal Sclerae: sclerae normal EOM: EOMs intact bilaterally Neck Neck: Yes normal visual inspection and Yes no lymphadenopathy Lymphatic: no lymphadenopathy noted Chest Chest palpation & inspection: normal inspection of the chest Resp Effort & Inspection: normal respiratory effort, able to speak in complete sentences, no audible wheezes, no cough, no stridor, not tachypneic, no tripod positioning and no use of accessory muscles Auscultation: clear to auscultation bilaterally Cardio Jugular venous distension: no JVD Rate: regular rate Rhythm: regular rhythm Skin Other: warm, dry General skin exam: no rashes or lesions noted Neuro General: patient oriented x3 Cranial nerves: Yes Normal hearing present Cognition (Neuro): normal cognition Gait exam (Neuro): Normal gait present Extrem General: Yes normal to inspection, Yes capillary refill normal, Yes no clubbing, cyanosis or edema and Yes no pedal edema Psych Appearance: grossly normal and well kempt Speech and movement: Normal speech and movement present and Clear speech present Affect: normal affect Attitude: cooperative Thought process: Normal thought process present Thought content: Normal thought content present Insight: Good insight present (Psych) Judgement: Good judgement present (Psych) Assessment & Plan Assessment & Plan (1) Asthma: Code(s): J45.909 - Unspecified asthma, uncomplicated Category: Medical Qualifiers: Asthma severity: mild Asthma persistence: intermittent Asthma complication type: unspecified Qualified Code(s): J45.20 - Mild intermittent asthma, uncomplicated (2) Pulmonary nodule: Code(s): R91.1 - Solitary pulmonary nodule Category: Medical Plan Melyssa's symptoms seem to have an allergic component, possibly post nasal drip contributing to cough. Will send for RAST and encouraged use of nasal spray as well as trialing a different antihistamine. Advised to continue Breo and albuterol MDI. At this time, Melyssa has been well controlled on current regimen, advised to continue. If no improvement she is aware to call office. All questions were answered and patient is in agreement of plan. Will follow up in 4-6 months or sooner if needed. Orders: Orders Complete Blood Count Auto Diff Today Z91.09 - Other allergy status, other than to drugs and biological substances Resp Allergy Profile Region I Today Z91.09 - Other allergy status, other than to drugs and biological substances Immunoglobulin E Today Z91.09 - Other allergy status, other than to drugs and biological substances Medications: New fluticasone furoate 27.5 mcg/actuation (Flonase Sensimist) into each nostril 2 sprays intranasal DAILY 27.3 mL 0RF levocetirizine (Xyzal) 5 mg PO DAILY 30 tabs 3RF Coding Level of Care Code Est Pt Level 4 (73749) Diagnoses Mild intermittent asthma, unspecified whether complicated J45.20 Asthma severity: mild Asthma persistence: intermittent Asthma complication type: unspecified Pulmonary nodule R91.1
== END 2024-06-17 15:42 | disposition home or self-care (01) ==
PROVIDERS: PCP Physician Assistant; Visit Provider Nurse Practitioner Family
DX: J45.20 Mild intermittent asthma, uncomplicated (principal); R91.1 Solitary pulmonary nodule
CPT/HCPCS: 99214

== ENCOUNTER 2024-06-18 10:31 | Outpatient (REF) | payer OTHER, SELFPAY ==
[2024-06-18 10:52] LABS: MANUAL DIFF FLAG NO
[2024-06-18 11:07] LABS: Basophils Absolute Auto 0.1 X10*3/uL (0.0-0.2); Basophils Percent Auto 0.7 % (0-2); Eosinophils Percent Auto 0.6 % (0-4); Hematocrit 40.8 % (37.0-47.0); Hemoglobin 13.7 g/dl (12.0-16.0); Imm Gran Abs Auto 0.02 X10*3/uL (0.00-0.03); Imm Gran Pct Auto 0.3 % (0.0-0.4); Lymphocytes Absolute Auto 1.9 X10*3/uL (1.2-4.9); Lymphocytes Percent Auto 26.7 % (20-40); Mean Corpuscular HGB Conc 33.6 g/dl (31.0-35.0); Mean Corpuscular Volume 89.5 fL (80.0-98.0); Mean Platelet Volume 9.4 fL (9.4-12.3); Monocytes Absolute Auto 0.5 X10*3/uL (0.1-1.2); Monocytes Percent Auto 6.3 % (2-11); Neutrophils Absolute Auto 4.7 x10*3/uL (2.0-8.3); Neutrophils Percent Auto 65.4 % (45-73); Platelet Count 348 X10*3/uL (160-400); Red Blood Count 4.56 X10*6/uL (4.20-5.50); Red Cell Distribution Width 11.9 % (11.0-16.0); White Blood Count 7.1 X10*3/uL (4.8-10.8)
[2024-06-19 22:58] LABS: Class Alternaria alternata 0; Class Aspergillus fumigatus 0; Class Bermuda Grass 0; Class Birch 0; Class Cat Dander 0; Class Cladosporium herbarum 0; Class Cockroach 0; Class Common Ragweed 0; Class Cottonwood 0; Class Derm. pterony 0; Class Dermatophagoides farinae 0; Class Dog Dander 0; Class Elm 0; Class Maple Box Elder 0; Class Mountain Cedar 0; Class Mouse Urine Protein 0; Class Mugwort 0; Class Oak 0; Class Penicillium crysogenum 0; Class Rough Pigweed 0; Class Sheep Sorrel 0; Class Sycamore 0; Class Timothy Grass 0; Class Walnut Tree 0; Class White Ash 0; Class White Mulberry 0; D001 IgE D pteronyssinus <0.10 kU/L; D002 - IgE D farinae <0.10 kU/L; E001 - IgE Cat Dander <0.10 kU/L; E005 - IgE Dog Dander <0.10 kU/L; E072-IgE Mouse Urine <0.10 kU/L; G002 IgE Bermuda Grass <0.10 kU/L; G006 - IgE Timothy Grass <0.10 kU/L; I006-IgE Cockroach, German <0.10 kU/L; Immunoglobulin E 8 kU/L (<OR=114); M001 IgE Penicillium chrysogen <0.10 kU/L; M002 - IgE Cladosporium herbar <0.10 kU/L; M003 - IgE Aspergillus fumigat <0.10 kU/L; M006 - IgE Alternaria alternat <0.10 kU/L; T001 IgE Maple/Box Elder <0.10 kU/L; T003 IgE Common Silver Birch <0.10 kU/L; T006 - IgE Cedar, Mountain <0.10 kU/L; T007 - IgE Oak, White <0.10 kU/L; T008 IgE Elm, American <0.10 kU/L; T010 - IgE Walnut <0.10 kU/L; T011 - IgE Maple Leaf Sycamore <0.10 kU/L; T014 - IgE Cottonwood <0.10 kU/L; T015 - IgE Ash, White <0.10 kU/L; T070 - IgE White Mulberry <0.10 kU/L; W001 - IgE Ragweed, Short <0.10 kU/L; W006 - IgE Mugwort <0.10 kU/L; W014 IgE Pigweed, Common <0.10 kU/L; W018 IgE Sheep Sorrel <0.10 kU/L
== END 2024-06-18 10:32 | disposition home or self-care (01) ==
LOC: HO.LAB 10:31
PROVIDERS: PCP Physician Assistant; Visit Provider Nurse Practitioner Family
DX: Z91.09 Other allergy status, other than to drugs and biological substances (principal)
CPT/HCPCS: 36415; 82785; 85025; 86003

== ENCOUNTER 2024-06-26 13:29 | Outpatient (AMB) | payer OTHER, SELFPAY ==
--- NOTE | 2024-06-26 13:30 | A.OFFVIS_ITS ---
Vital Signs 06/26/24 13:37 Height 5 ft 6 in Weight 152 lb 2 oz BMI 24.6 BP 133/85 Blood Pressure Location Lt brachial Position Sitting Pulse 73 Intake Visit Reasons: umbilical hernia Intake Note: Patient is seen in office for evaluation and treatment of an umbilical hernia. 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estradiol-iron 1 mg-10 mcg (24)/10 mcg (2) (Lo Loestrin Fe) 1 tab PO DAILY trazodone 50 - 150 mg PO BEDTIME PRN HPI Comments Details: 53-year-old female patient presenting for evaluation of umbilical hernia. She has no previous history of a lump in this location but recently noted an area of swelling at the bottom of the umbilicus. She does report doing heavy lifting at work as well as exercising with weights. 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 She denies any significant pain associated with the hernia but does have some mild discomfort when the lump is palpated. She denies nausea, vomiting, fever, chills, diarrhea, constipation or other associated abdominal symptoms. She has never had surgery in this location. She does know a diastasis recti following the of her children. [facility] Medical History Exertional shortness of breath Menopausal symptom Surgical History History of loop electrical excision procedure (LEEP) Hx of LASIK Family History Father Bladder cancer Mother HTN (hypertension) Rheumatic arteritis Sarcoidosis Social History Housing: House Alcohol intake: current Alcohol intake frequency: a few times a month Patient Tobacco Use Status: Never used Tobacco e-Cigarette/Vaping Use: Never Used service: No Current occupational status: employed 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, 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 [place] Gender identity: Female Cognitive needs: No Hearing needs: No Vision needs: No Review of Systems Const All systems reviewed & are unremarkable except as noted in HPI and below Physical Exam Vital Signs: Last Vital Signs Pulse 73 06/26/24 13:37 BP 133/85 06/26/24 13:37 BMI result Body Mass Index 24.6 Const General: cooperative and no acute distress Nutritional Appearance: well nourished Orientation/consciousness: patient oriented x3 Limitations: no limitations HEENT Head: Yes normocephalic and Yes atraumatic Ears: hearing grossly normal bilaterally Resp Effort & Inspection: normal respiratory effort, no audible wheezes, no cough and no respiratory distress Cardio Jugular venous distension: no JVD GI Other: Soft and nondistended, normal bowel sounds. A small umbilical hernias noted at the base of the umbilicus. There is mild discomfort when palpated. Omental fat is palpable within the hernia defect. This is easily reducible with light pressure. Inspection: Yes normal to inspection Skin Other: Warm, dry, no rash Neuro General: patient oriented x3 Extrem General: Yes no clubbing, cyanosis or edema Assessment & Plan Assessment & Plan (1) Umbilical hernia: Code(s): K42.9 - Umbilical hernia without obstruction or gangrene Category: Medical Qualifiers: Obstruction and gangrene presence: without obstruction or gangrene Qualified Code(s): K42.9 - Umbilical hernia without obstruction or gangrene Plan 53-year-old female patient presenting with a reducible umbilical hernia with a defect measuring approximately 2 cm in diameter. I recommended an elective repair of this umbilical hernia with mesh and after discussion of the procedure, risks, and alternatives, she consents to the surgery. She will call us when she is ready to schedule the surgery. She is welcome to call for any new questions. Coding Level of Care Code New Pt Level 4 (74096) Diagnoses Umbilical hernia without obstruction and without gangrene K42.9 Obstruction and gangrene presence: without obstruction or gangrene
[2024-06-26 13:37] VITALS: BP 133/85; PULSE 73; BMI 24.6
== END 2024-06-26 13:46 | disposition home or self-care (01) ==
LOC: HO.HGS 13:29
PROVIDERS: PCP Physician Assistant; Visit Provider Surgery
DX: K42.9 Umbilical hernia without obstruction or gangrene (principal)
CPT/HCPCS: 99204

== ENCOUNTER 2024-07-16 12:38 | Outpatient (REF) | payer OTHER, SELFPAY ==
--- NOTE | ~2024-07-16 | XR_ITS ---
CLINICAL HISTORY: R05.9 - Cough, unspecified 2 view chest x-ray Comparison: None Findings: The lungs are clear. Heart size is normal. No acute fracture. IMPRESSION: 1. No acute findings. This document has been electronically signed by: Saeed Louise MD on 07/18/2024 08:45:17
== END 2024-07-16 12:39 | disposition home or self-care (01) ==
LOC: HO.XRAY 12:38
PROVIDERS: PCP Physician Assistant; Visit Provider Nurse Practitioner Family
DX: R05.9 Cough, unspecified (principal)
CPT/HCPCS: 71046

== ENCOUNTER 2024-07-16 12:38 | Outpatient (AMB) | payer OTHER, SELFPAY ==
--- NOTE | 2024-07-16 12:39 | MHC.OFFVIS ---
Vital Signs 07/16/24 12:43 Height 5 ft 6 in Weight 152 lb BMI 24.5 BP 112/76 Blood Pressure Location Rt brachial Position Sitting Pulse 77 Pulse Source Pulse Oximeter Pulse Oximetry (%) 98 Oxygen Delivery Method Room Air Intake Visit Reasons: Chronic cough Allergies fluoxetine Adverse Reaction (Mild, Verified 07/16/24 12:46) cough HPI HPI Chronic cough: Details: Melyssa is a pleasant 53 year old female, never smoker, with underlying asthma. At baseline, she has been doing quite well with Breo, rarely requiring albuterol MDI. She continues to be quite active with minimal respiratory symptoms. Today she presents for an acute visit. She noticed about a month ago tickle in throat causing a cough, which has been persistent, she was treated with azithromycin with complete resolution of symptoms for almost two weeks. Unfortunately, cough has returned. She also reports sinus congestion and dental pain. Denies wheezing or dyspnea. She denies any fevers, chills or chest congestion. [facility] Medical History Exertional shortness of breath Menopausal symptom Surgical History History of loop electrical excision procedure (LEEP) Hx of LASIK Family History Father Bladder cancer Mother HTN (hypertension) Rheumatic arteritis Sarcoidosis Social History Housing: House Alcohol intake: current Alcohol intake frequency: a few times a month Patient Tobacco Use Status: Never used Tobacco e-Cigarette/Vaping Use: Never Used service: No Current occupational status: employed 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, 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 [place] Gender identity: Female Cognitive needs: No Hearing needs: No Vision needs: No Review of Systems Const Denies chills, Denies excessive sweating, Denies fever(s), Denies headache(s) and Denies night sweats Eyes Denies dry eyes, Denies irritation and Denies itchy eyes ENT Reports Normal hearing present, Denies headache(s), Reports post nasal drip and Denies sore throat Card Denies chest pain, Denies chest pain at rest, Denies chest pain with activity, Denies claudication, Denies leg edema, Denies dyspnea, Denies dyspnea on exertion, Denies orthopnea and Denies paroxysmal nocturnal dyspnea Resp Denies chest congestion, Denies excessive phlegm production, Denies pain on inspiration, Denies pain with cough, Denies dyspnea, Denies dyspnea on exertion, Denies stridor and Denies wheezing Musc Denies myalgias Neuro Reports Normal hearing present and Denies headache(s) Endo Denies excessive sweating Rico/Lymph Denies lymphadenopathy Aller/Immun Denies itchy eyes, Denies seasonal rhinorrhea and Denies wheezing Physical Exam Vital Signs: Last Vital Signs Pulse 77 07/16/24 12:43 BP 112/76 07/16/24 12:43 Pulse Ox 98 07/16/24 12:43 Oxygen Delivery Method Room Air 07/16/24 12:43 BMI result Body Mass Index 24.5 Const General: cooperative, healthy appearing, comfortable, no acute distress, well developed and alert Orientation/consciousness: patient oriented x3 Limitations: no limitations HEENT Head: Yes normal to inspection, Yes normocephalic and Yes atraumatic Ears: hearing grossly normal bilaterally and external ears normal Eyes General: appearance normal, both eyes and all related structures Eyelids: Yes eyelids normal Sclerae: sclerae normal EOM: EOMs intact bilaterally Neck Neck: Yes normal visual inspection and Yes no lymphadenopathy Lymphatic: no lymphadenopathy noted Chest Chest palpation & inspection: normal inspection of the chest Resp Effort & Inspection: normal respiratory effort, able to speak in complete sentences, no audible wheezes, no cough, no stridor, not tachypneic, no tripod positioning and no use of accessory muscles Auscultation: clear to auscultation bilaterally Cardio Jugular venous distension: no JVD Rate: regular rate Rhythm: regular rhythm Skin Other: warm, dry General skin exam: no rashes or lesions noted Neuro General: patient oriented x3 Cranial nerves: Yes Normal hearing present Cognition (Neuro): normal cognition Gait exam (Neuro): Normal gait present Extrem General: Yes normal to inspection, Yes capillary refill normal, Yes no clubbing, cyanosis or edema and Yes no pedal edema Psych Appearance: grossly normal and well kempt Speech and movement: Normal speech and movement present and Clear speech present Affect: normal affect Attitude: cooperative Thought process: Normal thought process present Thought content: Normal thought content present Insight: Good insight present (Psych) Judgement: Good judgement present (Psych) Assessment & Plan Assessment & Plan (1) Sinusitis: Code(s): J32.9 - Chronic sinusitis, unspecified Category: Medical (2) Asthma: Code(s): J45.909 - Unspecified asthma, uncomplicated Category: Medical Qualifiers: Asthma severity: mild Asthma persistence: intermittent Asthma complication type: unspecified Qualified Code(s): J45.20 - Mild intermittent asthma, uncomplicated (3) Pulmonary nodule: Code(s): R91.1 - Solitary pulmonary nodule Category: Medical Plan At this time, will treat for sinusitis with Augmentin as patient had complete resolution of symptoms with azithromycin short term and continues with sinus congestion and likely referred dental pain from sinuses. Will send for CXR to assess for any parenchymal condition contributing to cough however less likely. Initially thought symptoms were related to an allergic component, however RAST negative IGE eosoinophils WNL, discussed possible non allergic rhinitis, however would like to consider SPT. Will send for an allergy evaluation. Encouraged ipratropium nasal spray for possible post nasal drip component. Advised to continue Breo and albuterol MDI. If no improvement she is aware to call office. All questions were answered and patient is in agreement of plan. Will follow up in 4-6 months or sooner if needed. Medications: New amoxicillin-pot clavulanate 875-125 mg 1 tab PO Q12H 20 tabs 0RF ipratropium bromide administer into each nostril 2 sprays intranasal BID 30 mL 0RF Discontinued fluticasone furoate-vilanterol 200-25 mcg/dose (Breo Ellipta) Discontinued Reason: Patient Completed Course 1 inh inhalation DAILY 60 ea 3RF Coding Level of Care Code Est Pt Level 4 (41780) Diagnoses Sinusitis J32.9 Mild intermittent asthma, unspecified whether complicated J45.20 Asthma severity: mild Asthma persistence: intermittent Asthma complication type: unspecified Pulmonary nodule R91.1
[2024-07-16 12:43] VITALS: BP 112/76; PULSE 77; O2SAT 98; BMI 24.5
== END 2024-07-16 13:04 | disposition home or self-care (01) ==
LOC: HO.HPSW 12:39
PROVIDERS: PCP Physician Assistant; Visit Provider Nurse Practitioner Family
DX: J32.9 Chronic sinusitis, unspecified (principal); J45.20 Mild intermittent asthma, uncomplicated; R91.1 Solitary pulmonary nodule
CPT/HCPCS: 99214

== ENCOUNTER → 2024-07-16 15:48 | Outpatient (BNV) | payer OTHER, SELFPAY | PROVIDERS: PCP Physician Assistant; Visit Provider Specialist | DX: R05.9 Cough, unspecified (principal) | CPT/HCPCS: 71046 ==

== ENCOUNTER 2024-09-17 07:00 | Outpatient (REF) | payer OTHER, SELFPAY ==
[2024-09-17 07:45] LABS: Hematocrit 39.7 % (37.0-47.0); Hemoglobin 13.8 g/dl (12.0-16.0); Mean Corpuscular HGB Conc 34.8 g/dl (31.0-35.0); Mean Corpuscular Hemoglobin 30.9 pg (27.0-33.0); Mean Corpuscular Volume 89.0 fL (80.0-98.0); NRBC Abs Auto 0.000 X10*3/uL (0.0-0.012); NRBC Pct Auto 0.0 /100WBC (0.0-0.2); Platelet Count 282 X10*3/uL (160-400); Red Blood Count 4.46 X10*6/uL (4.20-5.50); White Blood Count 5.5 X10*3/uL (4.8-10.8)
[2024-09-17 08:17] LABS: Alanine Aminotransferase 23 U/L (0-31); Albumin Level 4.0 g/dL (3.5-5.0); Alkaline Phosphatase 42 U/L (39-117); Anion Gap 11 (12-20); Aspartate Amino Transferase 28 U/L (5-31); Blood Urea Nitrogen 15 mg/dL (9-16); Calcium 8.7 mg/dL (8.4-10.2); Carbon Dioxide 25 mmol/L (22-29); Chloride 108 mmol/L (96-108); Cholesterol 186 mg/dL (<200); Estimated Glomerular Filt Rate 56; HDL Cholesterol 54 mg/dL (>40); Potassium 4.0 mmol/L (3.3-5.1); Sodium 140 mmol/L (135-145); Total Protein 6.6 g/dL (6.5-8.0); Triglycerides 79 mg/dL (<150)
== END 2024-09-17 07:01 | disposition home or self-care (01) ==
LOC: HO.LAB 07:00
PROVIDERS: PCP Physician Assistant; Visit Provider Physician Assistant
DX: Z00.00 Encounter for general adult medical examination without abnormal findings (principal); J45.20 Mild intermittent asthma, uncomplicated; J01.10 Acute frontal sinusitis, unspecified; S89.91XA Unspecified injury of right lower leg, initial encounter; E78.9 Disorder of lipoprotein metabolism, unspecified; Z13.31 Encounter for screening for depression; Z13.39 Encounter for screening examination for other mental health and behavioral disorders; W18.30XA Fall on same level, unspecified, initial encounter; Y93.02 Activity, running; Y92.9 Unspecified place or not applicable; Y99.9 Unspecified external cause status
CPT/HCPCS: 36415; 80053; 80061; 85027; 96127

== ENCOUNTER 2024-09-17 15:51 | Outpatient (AMB) | payer OTHER, SELFPAY ==
--- NOTE | 2024-09-17 15:59 | A.OFFPC_ITS ---
Vital Signs 09/17/24 16:01 Height 5 ft 6 in Weight 147 lb 2 oz BMI 23.7 BP 120/68 Blood Pressure Location Lt brachial Position Sitting Pulse 71 Pulse Source Pulse Oximeter Temp 97.1 F Temp Source Temporal Artery Scan Pulse Oximetry (%) 98 Oxygen Delivery Method Room Air Intake Visit Reasons: PE Intake Note: Patient is here today for a physical. 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 Accompanied by: Self / Same As Patient Allergies fluoxetine Adverse Reaction (Mild, Verified 09/17/24 16:32) cough Medication List - Last Reconciled 09/17/24 by Michael Vicente PA-C albuterol sulfate 90 mcg/actuation 2 puffs inhalation Q4-6H PRN escitalopram oxalate 10 mg PO DAILY fluticasone furoate-vilanterol 100-25 mcg/dose (Breo Ellipta) 1 ea inhalation DAILY ipratropium bromide 2 sprays intranasal BID 90 days norethindrone-e.estradiol-iron 1 mg-10 mcg (24)/10 mcg (2) (Lo Loestrin Fe) 1 tab PO DAILY trazodone 50 - 150 mg PO BEDTIME PRN Tobacco use date assessed: 09/17/24 Dental Screening Dental Screen Date: 09/17/24 Did you have a dental visit in the last 12 months?: Yes Did you have a dental problem in the last 6 months where you did not have access to dental care?: No Was dental information given to patient?: Patient has dentist HPI PE HPI Details patient is a 53-year-old female here today for annual physical. ? Patient has a past medical history significant for?asthma and borderline high cholesterol Concern--> she reports recently falling eating injuring her right kneecap. She has minimal pain and no edema. There is a palpable deformity over the knee gap and will watch and wait at this time. Would consider x-ray of the patella. .. Chronic sinusitis: She has a history of chronic sinusitis, which has been persistent over the winter, leading to a prolonged cough and multiple courses of antibiotics without resolution. The patient has been referred to an ENT for further evaluation, as previous treatments have not been effective. Was previously diagnosed with asthma though has not to use an albuterol inhaler in quite some time. She runs several miles a week. .. ? Vaccines:? up-to-date with Tdap,? up-to-date with COVID vaccine, up-to-date flu vaccine, UTDpneumonia vaccine .. Mammo : Goes [facility] Mammo . Colorectal cancer screening:? Done in 2022 normal, repeat 10 years Laboratory Tests 08/12/20 09/07/21 09/05/22 07:48 07:20 07:24 WBC 5.1 RBC 4.49 Hgb 12.1 Creatinine 0.89 0.94 Cholesterol 223 LDL Cholesterol, C alc 09/13/22 09/10/23 07:14 07:09 WBC RBC Hgb 13.5 Creatinine 0.84 Cholesterol 201 194 LDL Cholesterol, C alc 128 H [facility] Medical History Exertional shortness of breath Menopausal symptom Surgical History History of loop electrical excision procedure (LEEP) Hx of LASIK Family History (Updated 09/17/24 @ 16:35 by Michael Vicente PA-C) Father Bladder cancer [place] macroglobulinemia Mother HTN (hypertension) Rheumatic arteritis Sarcoidosis Social History (Updated 09/17/24 @ 16:36 by Michael Vicente PA-C) Housing: House Alcohol intake: current Alcohol intake frequency: a few times a month Patient Tobacco Use Status: Never used Tobacco e-Cigarette/Vaping Use: Never Used Second Hand Smoke Exposure: No service: No Current occupational status: employed 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, 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 [place] Gender identity: Female Cognitive needs: No Hearing needs: No Vision needs: No Questionnaire PHQ-9 Over the last 2 weeks, how often have you been bothered by any of the following problems? 1. Little interest or pleasure in doing things: not at all 2. Feeling down, depressed, or hopeless: not at all 3. Trouble falling or staying asleep, or sleeping too much: several days 4. Feeling tired or having little energy: not at all 5. Poor appetite or overeating: not at all 6. Feeling bad about yourself - or that you are a failure or have let yourself or your family down: not at all 7. Trouble concentrating on things, such as reading the newspaper or watching television: not at all 8. Moving or speaking so slowly that other people could have noticed. Or the opposite - being so fidgety or restless that you have been moving around a lot more than usual: not at all 9. Thoughts that you would be better off or of hurting yourself in some way: not at all Total score: 1 Depression Screening Interpretation: Positive Depression Screening Done: Yes Source: Developed by Drs. Arvind Panda, Moni Davidson, Vitaly Copeland and colleagues, with an educational marty from [employer]. Thrive Questionnaire Date Thrive assessed: 09/17/24 I am a: Patient What is your living situation today?: I have a steady place to live Within the past 12 months, did the food you bought not last and you didn't have the money to get more?: Never true Within the past 12 months, did you worry whether your food would run out before you got money to buy more?: Never true Do you have trouble paying for medicines?: No Do you have trouble getting transportation to medical appointments?: No Do you have trouble paying your heating and electricity bill?: No Do you have trouble taking care of your child, family member or friend?: No Do you have trouble with day-to-day activities such as bathing, preparing meals, shopping, managing finances, etc.?: No Are you currently unemployed and looking for a job?: No Are you interested in more education?: No Please select the resources that you would like help with: None Currently or been in a relationship where the following occur: No concerns reported THRIVE Score: 0 AUDIT C Alcohol Use Questionnaire (AUDIT-C) 1. How often do you have a drink containing alcohol?: 2-4 times a month 2. How many drinks containing alcohol do you have on a typical day when you are drinking?: 1 or 2 3. How often do you have six or more drinks on one occasion?: Never Total Score: 2 NADEEN-7 AMB Questionnaire NADEEN-7 Date NADEEN - 7 assessed: 09/17/24 Feeling nervous, anxious, or on edge: 1 = Several days Not being able to stop or control worryin = Not at all Worrying too much about different things: 0 = Not at all Trouble relaxin = Several days Being so restless that it is hard to sit still: 0 = Not at all Becoming easily annoyed or irritable: 0 = Not at all Feeling afraid as if something awful might happen: 0 = Not at all Total NADEEN-7 score (0-4 normal; 5-9 mild; 10-14 moderate; 15-21 severe): 2 Source: Developed by Drs. Arvind Panda, Moni Davidson, Vitaly Copeland and colleagues, with an educational marty from [employer]. Review of Systems Const Denies body aches, Denies chills, Denies excessive sweating, Denies fatigue, Denies fever(s) and Denies headache(s) Eyes Denies blurry vision ENT Denies dysphagia, Denies vertigo, Denies dizziness, Denies headache(s), Denies hearing loss and Denies tinnitus Card Denies chest pain, Denies chest pain with activity, Denies syncope, Denies irregular heart rhythm and Denies dyspnea Resp Denies chest congestion, Denies cough, Denies hemoptysis, Denies dyspnea and Denies wheezing GI Denies abdominal pain, Denies melena, Denies hematochezia, Denies coffee ground emesis, Denies dysphagia, Denies diarrhea, Denies nausea and Denies vomiting Denies urinary frequency, Denies dysuria, Denies urinary hesitancy and Denies urinary urgency Musc Denies arthralgias, Denies limited range of motion, Denies muscle cramps and Denies muscle weakness Skin/Breast Denies rash and Denies skin ulcer Neuro Denies Abnormal speech present, Denies confusion, Denies vertigo, Denies dizziness, Denies syncope, Denies headache(s), Denies memory loss and Denies seizure-like activity Psych Denies anxiety, Denies confusion, Denies depression, Denies memory loss, Denies panic attacks and Denies paranoia Endo Denies excessive sweating, Denies fatigue, Denies flushing, Denies polydipsia and Denies polyuria Aller/Immun Denies wheezing Physical exam (Primary Care) Vital Signs: Last Vital Signs Temp 97.1 F 09/17/24 16:01 Pulse 71 09/17/24 16:01 BP 120/68 09/17/24 16:01 Pulse Ox 98 09/17/24 16:01 Oxygen Delivery Method Room Air 09/17/24 16:01 BMI result Body Mass Index 23.7 Tobacco/Smoking Status: Tobacco use Status Tobacco use date assessed 09/17/24 09/17/24 16:14 Patient Tobacco Use Status Never used Tobacco 09/17/24 16:36 e-Cigarette/Vaping Use Never Used 09/17/24 16:36 PHQ-9: PHQ-9 Score PHQ-9: Total score 1 09/17/24 16:38 Depression Screening Interpretation: Positive Thrive Assessment: Date of Thrive Assessment Date Thrive assessed 09/17/24 09/17/24 16:14 Currently or been in a relationship where the following occur: No concerns reported Const General: cooperative, comfortable, no acute distress, alert and awake; No confusion Orientation/consciousness: oriented to person, oriented to place, patient oriented x3 and No confusion HENMT Head: Yes normocephalic Ears: external ears normal and TM's normal bilaterally Face and sinus: No sinus tenderness Mouth: Normal oral and palatal mucosa present and tongue normal Teeth and gingiva: dentition normal and gingiva normal Throat: Yes posterior oropharynx normal, Yes tonsils normal and Yes uvula midline Eyes Conjunctivae: conjunctivae normal Sclerae: sclerae normal Pupils: Equal, round and reactive pupils present EOM: EOMs intact bilaterally Direct Ophthalmoscopy: No no photophobia Neck Neck: Yes no lymphadenopathy, No tender and Yes no JVD Thyroid: Thyroid normal Carotids: no bruits Chest Chest palpation & inspection: no tenderness Resp Effort & Inspection: normal respiratory effort, no audible wheezes, not labored and no stridor Auscultation: no crackles, no rales, no rhonchi and no wheezes Cardio Jugular venous distension: no JVD Rate: regular rate, not bradycardic and not tachycardic Rhythm: regular rhythm Bruits: no carotid bruits Peripheral pulses: Peripheral pulses 2+ throughout GI Inspection: Yes normal to inspection, No abdominal wall ecchymosis and No visible herniation Palpation (GI): Soft to palpation, nontender, no guarding, not rigid and No hepatosplenomegaly present Auscultation: normoactive bowel sounds General: Yes no CVA tenderness Back/Spine/Pelvis Back: no CVA tenderness and No back tenderness Cervical Spine: cervical ROM normal Thoracic/Lumbar Spine: thoracic and lumbar spine normal to inspection, straight leg raise negative bilaterally, No thoraco-lumbar ROM limited and No lumbar spinal tenderness Skin Lesions: no lesions Rashes: no rashes Wounds: no wounds Neuro General: oriented to person, oriented to place, patient oriented x3, CN's II-XI intact bilaterally and No confusion Cranial nerves: Yes Equal, round and reactive pupils present and Yes Normal accommodation reflex present Cognition (Neuro): normal cognition Speech: No Abnormal speech present Gait exam (Neuro): Normal gait present Motor exam (neuro): 5/5 motor strength present throughout Extrem Right upper extremity: full ROM; no cyanosis Left upper extremity: full ROM; no cyanosis Right lower extremity: no edema Left lower extremity: no edema Psych Appearance: grossly normal Mental Status: mental status grossly normal Affect: normal affect Attitude: cooperative Thought process: Normal thought process present Coding Level of Care Code Est Pt Prev Care 40-64y(02127) Diagnoses Annual physical exam Z00.00 Mild intermittent asthma, unspecified whether complicated J45.20 Asthma severity: mild Asthma persistence: intermittent Asthma complication type: unspecified Subacute frontal sinusitis J01.10 Sinusitis location: frontal Chronicity: subacute Injury of right patella, initial encounter S89.91XA Encounter type: initial encounter Borderline high cholesterol E78.9 Assessment & Plan Assessment & Plan (1) Annual physical exam: Code(s): Z00.00 - Encounter for general adult medical examination without abnormal findings Category: Medical Plan: As per HPI (2) Asthma: Code(s): J45.909 - Unspecified asthma, uncomplicated Category: Medical Qualifiers: Asthma severity: mild Asthma persistence: intermittent Asthma c omplication type: unspecified Qualified Code(s): J45.20 - Mild intermittent asthma, uncomplicated Plan: Patient reports not have any use an albuterol inhaler in quite some time. Here cough has mostly resolved. She continues to run multiple miles a week (3) Sinusitis: Code(s): J32.9 - Chronic sinusitis, unspecified Category: Medical Qualifiers: Sinusitis location: frontal Chronicity: subacute Qualified Code(s): J01.10 - Acute frontal sinusitis, unspecified Plan: The patient has been experiencing chronic sinusitis with a persistent cough over the winter, which has not resolved with multiple courses of antibiotics. She has been referred to an ENT for further evaluation and management. (4) Injury of right patella: Code(s): S89.91XA - Unspecified injury of right lower leg, initial encounter Category: Medical Qualifiers: Encounter type: initial encounter Qualified Code(s): S89.91XA - Unspecified injury of right lower leg, initial encounter Plan: As per HPI experience a minor fall during her run. Does have a palpable deformity over the right patella. No pain or edema. Will hold off on x-ray for now. (5) Borderline high cholesterol: Code(s): E78.9 - Disorder of lipoprotein metabolism, unspecified Category: Medical Plan: Patient has a history of borderline high cholesterol. Most recent fasting lipid panel showing excellent control over total cholesterol and LDL. She will continue on dietary modifications
[2024-09-17 16:01] VITALS: BP 120/68; PULSE 71; TEMP 36.2; O2SAT 98; BMI 23.7
--- OUTSIDE RECORDS SUMMARY | 2024-09-17 16:23 | XMS_ITS ---
Author Name [facility] Organization Unknown Care Team Organization Name Specialty Phone Email Start Date End Da te [facility] 12/27/2021 4
== END 2024-09-17 16:48 | disposition home or self-care (01) ==
LOC: HO.HMCH 15:52
PROVIDERS: PCP Physician Assistant; Visit Provider Physician Assistant
DX: Z00.00 Encounter for general adult medical examination without abnormal findings (principal); J45.20 Mild intermittent asthma, uncomplicated; J01.10 Acute frontal sinusitis, unspecified; S89.91XA Unspecified injury of right lower leg, initial encounter; E78.9 Disorder of lipoprotein metabolism, unspecified

== ENCOUNTER 2024-10-03 07:22 | Outpatient (REF) | payer OTHER, SELFPAY ==
--- NOTE | ~2024-10-03 | CT_ITS ---
CLINICAL HISTORY: R91.1 - Solitary pulmonary nodule CT chest without contrast Comparison: 10/23/2023 Findings: The heart is normal size. The visualized thyroid and mediastinum are unremarkable. There is continued stability of the 0.3 cm right lower lobe pulmonary lesion. No new consolidation or effusion. The visualized upper abdomen is unremarkable. No acute fractures. IMPRESSION: 1. Stable right lower lobe pulmonary lesion. This document has been electronically signed by: Saeed Louise MD on 10/03/2024 08:58:13
--- NOTE | ~2024-10-03 | CT_ITS ---
CLINICAL HISTORY: J32.9 - Chronic sinusitis, unspecified --- Additional Notes or Special Instructions: Patient with a recurrent sinus pain and pressure and infections. Has CT sinuses without contrast Comparison: None provided Findings: The sinuses are clear. The ostiomeatal units are patent. No nancy bullosa or Andrew cells. The nasal airways are patent. No nasal polyps or masses. The orbits are normal. No acute fractures. IMPRESSION: Unremarkable sinus CT. This document has been electronically signed by: Saeed Louise MD on 10/03/2024 08:51:38
== END 2024-10-03 07:23 | disposition home or self-care (01) ==
LOC: HO.CT 07:22
PROVIDERS: PCP Physician Assistant; Visit Provider Nurse Practitioner Family
DX: J32.9 Chronic sinusitis, unspecified (principal); R91.1 Solitary pulmonary nodule
CPT/HCPCS: 70486; 71250

== ENCOUNTER → 2024-10-03 07:25 | Outpatient (BNV) | payer OTHER, SELFPAY | PROVIDERS: PCP Physician Assistant; Visit Provider Specialist | DX: R91.1 Solitary pulmonary nodule (principal); J32.9 Chronic sinusitis, unspecified | CPT/HCPCS: 70486; 71250 ==

== ENCOUNTER 2024-12-16 14:52 | Outpatient (AMB) | payer OTHER, SELFPAY ==
[2024-12-16 14:55] VITALS: BP 104/68; PULSE 64; O2SAT 96; BMI 24.6
--- NOTE | 2024-12-16 14:55 | MHC.OFFVIS ---
Vital Signs 12/16/24 14:55 Height 5 ft 6 in Weight 152 lb 4 oz BMI 24.6 BP 104/68 Blood Pressure Location Rt brachial Position Sitting Pulse 64 Pulse Source Pulse Oximeter Pulse Oximetry (%) 96 Oxygen Delivery Method Room Air Intake Visit Reasons: dry cough, itchy throat Allergies fluoxetine Adverse Reaction (Mild, Verified 12/16/24 14:58) cough HPI HPI dry cough, itchy throat: Details: Melyssa is a pleasant 54 year old female, never smoker, with underlying asthma. At baseline, she has been doing quite well with Breo, rarely requiring albuterol MDI. She continues to be quite active with minimal respiratory symptoms. Occasionally if she is outdoors running she will have an increase in chest tightness however has not required albuterol MDI. Since the last visit patient was evaluated by ENT diagnosed with silent reflux and started on Omeprazole 40 mg BID with moderate effect. In the office note from ENT he did recommend she trial alginate therapies which she was not aware of. She also had SPT which was negative. She continues to report a tickle in throat/increased mucus leading to a cough. Denies any dyspnea, wheezing or chest tightness. Denies any visits to urgent care or hospitalizations related to respiratory distress. [facility] Medical History Exertional shortness of breath Menopausal symptom Surgical History History of loop electrical excision procedure (LEEP) Hx of LASIK Family History (Updated 09/17/24 @ 16:35 by Michael Vicente PA-C) Father Bladder cancer Waldenstrom macroglobulinemia Mother HTN (hypertension) Rheumatic arteritis Sarcoidosis Social History Housing: House Alcohol intake: current Alcohol intake frequency: a few times a month Patient Tobacco Use Status: Never used Tobacco e-Cigarette/Vaping Use: Never Used Second Hand Smoke Exposure: No service: No Current occupational status: employed 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, 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 [place] Gender identity: Female Cognitive needs: No Hearing needs: No Vision needs: No Review of Systems Const Denies chills, Denies excessive sweating, Denies fever(s), Denies headache(s) and Denies night sweats Eyes Denies dry eyes, Denies irritation and Denies itchy eyes ENT Reports Normal hearing present, Denies headache(s), Denies nasal congestion, Denies nasal discharge, Denies post nasal drip and Denies sore throat Card Denies chest pain, Denies chest pain at rest, Denies chest pain with activity, Denies claudication, Denies leg edema, Denies dyspnea, Denies dyspnea on exertion, Denies orthopnea and Denies paroxysmal nocturnal dyspnea Resp Denies chest congestion, Denies pain on inspiration, Denies pain with cough, Denies dyspnea, Denies dyspnea on exertion, Denies stridor and Denies wheezing Musc Denies myalgias Neuro Reports Normal hearing present and Denies headache(s) Endo Denies excessive sweating Rico/Lymph Denies lymphadenopathy Aller/Immun Denies itchy eyes, Denies seasonal rhinorrhea and Denies wheezing Physical Exam Vital Signs: Last Vital Signs Pulse 64 12/16/24 14:55 BP 104/68 12/16/24 14:55 Pulse Ox 96 12/16/24 14:55 Oxygen Delivery Method Room Air 12/16/24 14:55 BMI result Body Mass Index 24.6 Const General: cooperative, healthy appearing, comfortable, no acute distress, well developed and alert Orientation/consciousness: patient oriented x3 Limitations: no limitations HEENT Head: Yes normal to inspection, Yes normocephalic and Yes atraumatic Ears: hearing grossly normal bilaterally and external ears normal Eyes General: appearance normal, both eyes and all related structures Eyelids: Yes eyelids normal Sclerae: sclerae normal EOM: EOMs intact bilaterally Neck Neck: Yes normal visual inspection and Yes no lymphadenopathy Lymphatic: no lymphadenopathy noted Chest Chest palpation & inspection: normal inspection of the chest Resp Effort & Inspection: normal respiratory effort, able to speak in complete sentences, no audible wheezes, no cough, no stridor, not tachypneic, no tripod positioning and no use of accessory muscles Auscultation: clear to auscultation bilaterally Cardio Jugular venous distension: no JVD Rate: regular rate Rhythm: regular rhythm Skin Other: warm, dry General skin exam: no rashes or lesions noted Neuro General: patient oriented x3 Cranial nerves: Yes Normal hearing present Cognition (Neuro): normal cognition Gait exam (Neuro): Normal gait present Extrem General: Yes normal to inspection, Yes capillary refill normal, Yes no clubbing, cyanosis or edema and Yes no pedal edema Psych Appearance: grossly normal and well kempt Speech and movement: Normal speech and movement present and Clear speech present Affect: normal affect Attitude: cooperative Thought process: Normal thought process present Thought content: Normal thought content present Insight: Good insight present (Psych) Judgement: Good judgement present (Psych) Results Reviewed Results Reviewed: [address] [address] [address] Scan Report Signed Patient: Melyssa Parra MR#: [id number] : 1970 Acct:[id number] Age/Sex: 53 / F ADM Date: 10/03/24 Loc: HO.CT Attending Dr: Aleena Arreola NP Ordering Physician: Aleena Arreola NP Date of Service: 10/03/24 Procedure(s): CT chest wo IV con Accession Number(s): [id number] cc: Michael Vicente PA-C; Aleena Arreola NP~ Report Number: [id number]: Total DLP = 139.00 mGy-cm CLINICAL HISTORY: R91.1 - Solitary pulmonary nodule CT chest without contrast Comparison: 10/23/2023 Findings: The heart is normal size. The visualized thyroid and mediastinum are unremarkable. There is continued stability of the 0.3 cm right lower lobe pulmonary lesion. No new consolidation or effusion. The visualized upper abdomen is unremarkable. No acute fractures. IMPRESSION: 1. Stable right lower lobe pulmonary lesion. This document has been electronically signed by: Saeed Louise MD on 10/03/2024 08:58:13 Dictated By: Saeed Louise MD Signed By: <Electronically signed by Saeed Louise MD in OV> 10/03/2458 DD/ 7 TD/TT: 10/03/24857 Product Technician: Assessment & Plan Assessment & Plan (1) Asthma: Code(s): J45.909 - Unspecified asthma, uncomplicated Category: Medical Qualifiers: Asthma severity: mild Asthma persistence: intermittent Asthma complication type: unspecified Qualified Code(s): J45.20 - Mild intermittent asthma, uncomplicated (2) Pulmonary nodule: Code(s): R91.1 - Solitary pulmonary nodule Category: Medical (3) Laryngopharyngeal reflux: Code(s): K21.9 - Gastro-esophageal reflux disease without esophagitis Category: Medical Plan Discussed symptoms possibly related to silent reflux, as her respiratory symptoms are controlled and ENT as well as this office had recommended GI referral for further investigation which she was in agreement. Her asthma has been well controlled since initiating Breo rarely requiring albuterol MDI, advised to continue. Also discussed recommendations of alginate therapies per ENT which she is considering. Repeat chest CT revealed stability of pulmonary nodules for two years, no need for further follow up at this time. All questions were answered and patient is in agreement of plan. Will follow up in 3-6 months or sooner if needed. Orders: Referrals Gastroenterology Referral K21.9 - Gastro-esophageal reflux disease without esophagitis Coding Level of Care Code Est Pt Level 4 (19469) Diagnoses Mild intermittent asthma, unspecified whether complicated J45.20 Asthma severity: mild Asthma persistence: intermittent Asthma complication type: unspecified Pulmonary nodule R91.1 Laryngopharyngeal reflux K21.9
--- OUTSIDE RECORDS SUMMARY | 2024-12-16 19:17 | XMS_ITS | Data Portability ---
Author Organization [place] 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 I think both of these are contributing factors to her chronic cough that is likely neurogenic in nature. - We discussed lifestyle modifications, including avoiding caffeinated, spicy, or acidic foods, elevating the head of the bed during sleep, and avoiding eating before lying flat. The patient can also trial alginate therapy with either Gaviscon or Reflux Gormet prn. The patient will also start taking acid-reducing medication 30 minutes before meals: 40mg PPI Daily -Recommend 1 week of voice rest, adequate hydration -If her cough is not improving at the next visit I did discuss the option of oral steroids versus superior laryngeal nerve injections bilaterally -Continued follow-up with her pulmonology group -Review CT Sinus at next visit, pt to bring disc. [email or web address] Not available 09/29/2024 11:46:43 12/01/2024 12/01/2024 Melyssa is a 53-year-old female who returns today with prior evidence of laryngopharyngeal reflux and right vocal fold hemorrhage. with a known hx of CRSsNP. I think both of these are contributing factors to her chronic cough that is likely neurogenic in nature. I did review her outside CAT scan which is less impressive than initially thought. She is significantly improved but not completely improved we talked about options including continued acid reduction therapy versus GI evaluation, especially since her sinuses are clear. We did discuss long-term side effects of PPI including osteoporosis versus dementia, I did mention that this usually occurs in patients on long-term dosing but we will continue to monitor with any concerns. I would have her stop that at any point because of above. - Continue PPI for 3 months, will refill medication - She will call her GI doctor to discuss EGD. More than happy to send referral in the future if needed. - Touch base in 3 months for recheck [email or web address] Not available 12/01/2024 09:49:44 Plan of Treatment Reminders Order Date Submit Date Provider Last Modified By Organization Details Last Modified Time Details Appointments Establish ed 15 2025 03:45P M Rosalio Corral, DO Not available Not available Not available Lab None recorded. Referral None recorded. Procedures None recorded. Surgeries None recorded. Imaging None recorded. Medication Orders omeprazol e 40 mg capsule,d elayed release 2024 025 SHYANN [id number], [address] [place], [address], 12/01/2024 09:49:52 omeprazol e 40 mg capsule,d elayed release 2024 025 [email or web address] [id number], [address] [place], [address], 10/28/2024 09:39:14 Patient TargetsNo targets recorded. Patient Instructions Encounter Date Encounter Id Patient Instructions Last Modified By Organization Details Last Modified Time 09/29/2024 [id number] laryngopharyngea l reflux education [email or web address] Not available 09/29/2024 11:47:29 Reason for Referral None Reported. Problems Name Problem SNOMED Code Status Onset Date Resolution Date Notes Provider Name and Address Organization Details Recorded Time Chronic sinusitis 97214754 Active 2024 DO Presley Chavez [address] [address], [place], [address], [facility] 08:49:05 Chronic cough 86952233 Active 2024 Rosalio Corral DO [address] [place], [place] [address] [place], [address], [facility] [place] 08:49:23 Laryngopharyng eal reflux 244803030 Active 2024 Rosalio Corral DO [address] [address], [place], [address], [facility] [place] 11:37:11 Vocal cord hemorrhage 301676050 Active 2024 Rosalio Corral [address] [address], [place], [address], [facility] [place] 11:44:47 Edema of larynx 70552294 Active 2024 Rosalio Corral [address] [address], [place], [address], [facility] [place] 11:47:06 Gastroesophage al reflux disease without esophagitis 314803545 Active 2024 Rosalio Corral [address] [address], [place], [address], [facility] [place] 11:47:06 Problem Notes None recorded. Procedures Surgical History Date Name Laterality Status Provider Name and Address Organization Details Recorded Time 09/29/2024 FOL_Reflux _DHL completed Rosalio Corral [address] [address], , [address], [facility] - [facility] [place] 09/29/2024 11:46:27 Imaging Results None recorded. Procedure Notes None recorded. Medical Equipment None Reported. Allergies No known drug allergies Medications Name Sig Start Date Stop Date Status Note LastModified by Organization Details LastModified Time trazodone 50 mg tablet TAKE 1 TO 3 TABLETS BY MOUTH AT BEDTIME NEEDED FOR INSOMNIA active Not Available Not Available No t Available azithromyci n 250 mg tablet TAKE 2 TABLETS BY MOUTH TODAY, THEN TAKE 1 TABLET DAILY FOR 4 DAYS DIRECTED 09/29 completed Not Available Not Available Not Available fluconazole 150 mg tablet TAKE 1 TABLET BY MOUTH NOW THEN REPEAT 1 TAB IN 3 DAYS 09/29 completed Not Available Not Available Not Available tretinoin 0.025 % topical cream APPLY AT BEDTIME TO FACE active Not Available Not Available No t Available omeprazole 40 mg capsule,del ayed release Take 1 capsule twice a day by oral route for 90 days. 2024 active Not Available Not Available Not Avai lable estradiol 0.01% (0.1 mg/gram) vaginal cream INSERT 1 GRAM VAGINALLY TWICE A WEEK active Not Available Not Available No t Available albuterol sulfate HFA 90 mcg/actuati on aerosol inhaler INHALE 2 PUFFS EVERY 4 TO 6 HOURS NEEDED FOR SHORTNESS OF BREATH OR FOR WHEEZE active Not Available Not Available No t Available ipratropium bromide 21 mcg (0.03 %) nasal spray INSTILL 2 SPRAYS INTO BOTH NOSTRILS TWICE A DAY active Not Available Not Available No t Available amoxicillin 875 mg-potassiu m clavulanate 125 mg tablet TAKE 1 TABLET BY MOUTH EVERY 12 HOURS 09/29 completed Not Available Not Available Not Available escitalopra m 10 mg tablet TAKE 1 TABLET BY MOUTH EVERY DAY active Not Available Not Available No t Available Lo Loestrin Fe 1 mg-10 mcg (24)/10 mcg (2) tablet TAKE 1 TABLET BY MOUTH EVERY DAY FOR 84 DAYS active Not Available Not Available No t Available Breo Ellipta 100 mcg-25 mcg/dose powder for inhalation INHALE 1 PUFF EVERY DAY active Not Available Not Available No t Available Vitals Date Recorded Body height Body mass index (BMI) Body weight Provider Name and Address Organization Details Last Updated DateTime 09/29/2024 167.64 cm 23.4 kg/m2 19046.89 g [facility] [place] [facility] 09/29/2024 11:12:10 Date Recorded Body height Provider Name an d Address Organization Details Last Updated DateTime 12/01/2024 167.64 cm [facility] 12/01/2024 09:18:08 Social History None recorded. Functional Status Question Answer Note LastModified by Organizat ion Details LastModified Time What is your level of alcohol consumption? Occasional ccomi Information not available 09/29/2024 Mental Status None recorded. Family History Nothing Reported. Medical History Condition Response Cancer Y Arthritis Y Gynecological HistoryNo gynecological history recorded. Obstetrics History GPAL:G 0 P 0 0 0 0 Past Encounters Encounter ID Performer Location Encounter Start Date Encounter Closed Date Diagnosis/Indication Diagnosis SNOMED-CT Code Diagnosis ICD10 Code Diagnosis IMO Codes Diagnosis Note [id number] Rosalio DO Shayna [facility] [address] [facility], [place] [address] 09/29/2024 10:55:57 09/29/2024 11:45:07 Chronic sinusitis 25366663 J32.8 46856 Chronic cough 97041950 R 05.3 65146 Laryngopha ryngeal reflux 678896937 K21.9 9383360 Vocal cord hemorrhage 78 6100000 R04.8 [id number] Right [id number] Rosalio Corral DO [facility] [address] [place] [address] 12/01/2024 09:09:48 12/01/2024 09:50:11 Chronic sinusitis 59649870 J32.8 85238 stable Chronic cough 40195092 R 05.3 65598 2/2 LPR and prior vocal fold hemorrhage , improving Laryngopha ryngeal reflux 964482811 K21.9 2986133 stable Vocal cord hemorrhage 78 8691148 R04.9 5772953141 Right Health Concerns Section Related Observation LastModified by Organization Detai ls LastModified Time None Recorded Concern Status LastModified by Organization Details LastModified Time None Recorded Advance Directives Directive None Recorded Payers Insurance Date Sequence Insurance Name Policy Number Policy Lopez Covered Member ID Lopez Member ID Guarantor Name 12/01/[address] [place] [address] [id number] Melyssa S Fidel [id number] Melyssa Parra Notes Date Note Type Note Provider Name and Address Organization Details Recorded Time 09/29/2024 text/html ROS as noted in the HPI Melyssa is a pleasant 53 old female who presents today with concerns of a prior long sinus infection and chronic cough. -Sinus infection: Started around January-February, did not improve with antibiotics. Ended up getting significant cough as well, was seen by pulmonology team and underwent another round of abx. 3-4 rounds in total. No prior sinus surgery. Only have had a handful of sinus infections in her life otherwise. She did have allergy testing at that time which was negative. Cough - Violent, uncontrollable cough. Would wake her up at night time. Happens daily. Tried Xyzal and fluticasone, Ipratropium. Voice is raspy, mild improvement but not 100%. Chronic throat clearing. No heartburn. Does have a globus sensation. Pulm: Asthma/Bronchitis hx -is well-controlledCT Sinus scheduled Sunday Rosalio Corral, DO [address] [facility],[address], [address], [place] [facility] 09/29/2024 11:47:34 12/01/2024 text/html ROS as noted in the HPI Interval Hx: Started on PPI previously, Cough - is improving but still some globus sensation. Way better than before. She still has intermittent cough but less violent. PV: Melyssa is a pleasant 53 old female who presents today with concerns of a prior long sinus infection and chronic cough. -Sinus infection: Started around January-February, did not improve with antibiotics. Ended up getting significant cough as well, was seen by pulmonology team and underwent another round of abx. 3-4 rounds in total. No prior sinus surgery. Only have had a handful of sinus infections in her life otherwise. She did have allergy testing at that time which was negative.Cough - Violent, uncontrollable cough. Would wake her up at night time. Happens daily. Tried Xyzal and fluticasone, Ipratropium. Voice is raspy, mild improvement but not 100%. Chronic throat clearing. No heartburn. Does have a globus sensation.Pulm: Asthma/Bronchitis hx -is well-controlledCT Sinus scheduled Sunday this Rosalio Corral, 100 [facility],[place] [address], , [address], [facility] 12/01/2024 09:50:56 OBGyn Episode No OBEpisode recorded.
== END 2024-12-16 15:36 | disposition home or self-care (01) ==
LOC: HO.HPSW 14:52
PROVIDERS: PCP Physician Assistant; Visit Provider Nurse Practitioner Family
DX: J45.20 Mild intermittent asthma, uncomplicated (principal); R91.1 Solitary pulmonary nodule; K21.9 Gastro-esophageal reflux disease without esophagitis
CPT/HCPCS: 99214